=== PATIENT | female | born 1955 | race Caucasian/White ===

== ENCOUNTER 2022-06-21 14:31 | Emergency (ER) | payer OTHER, MEDICARE, SELFPAY ==
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
[2022-06-21 14:35] VITALS: BP 180/72; PULSE 72; O2SAT 98
[2022-06-21 14:36] VITALS: BP 156/72; PULSE 78; RESP 18; TEMP 36.8; O2SAT 98; BMI 34.3
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
[2022-06-21] MEDS: Acetaminophen 325 MG TABLET 650 MG PO (18:20)
[2022-06-21] MEDS: Cyclobenzaprine HCl 5 MG TABLET PO (18:21)
[2022-06-21 18:32] VITALS: BP 130/56; PULSE 79; RESP 19; TEMP 36.7; O2SAT 100
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
--- NOTE | 2022-06-21 19:26 | PC.NURSE ---
call out to [facility] TRANSFER LINE @[id number]
[2022-06-21 19:44] LABS: MANUAL DIFF FLAG NO
[2022-06-21 19:46] LABS: Basophils Absolute Auto 0.1 X10*3/uL (0.0-0.2); Basophils Percent Auto 0.4 % (0-2); Eosinophils Absolute Auto 0.1 X10*3/uL (0.0-0.4); Eosinophils Percent Auto 1.1 % (0-4); Hematocrit 37.3 % (37.0-47.0); Hemoglobin 12.2 g/dl (12.0-16.0); Imm Gran Abs Auto 0.06 X10*3/uL (0.00-0.03); Imm Gran Pct Auto 0.5 % (0.0-0.4); Lymphocytes Absolute Auto 1.8 X10*3/uL (1.2-4.9); Lymphocytes Percent Auto 14.2 % (20-40); Mean Corpuscular HGB Conc 32.7 g/dl (31.0-35.0); Mean Corpuscular Hemoglobin 27.6 pg (27.0-33.0); Mean Corpuscular Volume 84.4 fL (80.0-98.0); Mean Platelet Volume 9.5 fL (9.4-12.3); Monocytes Absolute Auto 0.7 X10*3/uL (0.1-1.2); Monocytes Percent Auto 5.5 % (2-11); Neutrophils Absolute Auto 10.1 x10*3/uL (2.0-8.3); Neutrophils Percent Auto 78.3 % (45-73); Platelet Count 318 X10*3/uL (160-400); Red Blood Count 4.42 X10*6/uL (4.20-5.50); Red Cell Distribution Width 17.2 % (11.0-16.0); White Blood Count 12.9 X10*3/uL (4.8-10.8)
[2022-06-21 19:51] LABS: INTERNATIONAL NORM RATIO 0.9 (0.9-1.1); Prothrombin Time 10.7 SEC (10.0-13.1)
[2022-06-21 19:54] LABS: Partial Thromboplastin Time 31.5 SEC (26.0-36.4)
[2022-06-21] MEDS: Morphine Sulfate 2 MG/ML CARTRIDGE IVPUSH (19:54)
[2022-06-21] MEDS: ondansetron HCL 4 MG/2 ML VIAL IVPUSH (19:55)
[2022-06-21 20:06] LABS: Alanine Aminotransferase 14 U/L (0-31); Albumin Level 4.4 g/dL (3.5-5.0); Alkaline Phosphatase 141 U/L (39-117); Anion Gap 17 (12-20); Aspartate Amino Transferase 12 U/L (5-31); Bilirubin Direct < 0.2 mg/dL (0.0-0.5); Bilirubin Total 0.4 mg/dL (0.0-1.0); Blood Urea Nitrogen 18 mg/dL (9-16); Calcium 9.4 mg/dL (8.4-10.2); Carbon Dioxide 13 mmol/L (22-29); Chloride 112 mmol/L (96-108); Creatinine Clr Calc Pharmacy 51.6; Estimated Glomerular Filt Rate 46; Glucose Random 290 mg/dL (60-115); Lipase 40 U/L (8-78); Magnesium 2.3 mg/dL (1.6-2.6); Sodium 139 mmol/L (135-145); Total Protein 7.8 g/dL (6.5-8.0)
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
[2022-06-21 20:09] VITALS: BP 153/54; PULSE 93; RESP 20
[2022-06-21 20:12] LABS: Troponin-I High Sensitivity 7.1 ng/L (<3.5-17.0)
[2022-06-21 20:23] LABS: Influenza A PCR NEGATIVE (Negative); Influenza B PCR NEGATIVE (Negative); Resp Syncy Virus RNA Qual PCR NEGATIVE (Negative); SARS COV2 PCR INHOUSE NEGATIVE (Negative)
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
[2022-06-21 21:44] VITALS: BP 129/58; PULSE 87; RESP 18; O2SAT 100
[2022-06-21] MEDS: Morphine Sulfate 4 MG/ML CARTRIDGE IVPUSH (22:36)
== END 2022-06-21 22:51 | disposition short-term general hospital (02) ==
PROVIDERS: Nurse Practitioner Family; Emergency Provider Emergency Medicine; PCP Physician Assistant Medical
DX: S22.21XA Fracture of manubrium, initial encounter for closed fracture (principal); S22.43XA Multiple fractures of ribs, bilateral, initial encounter for closed fracture; V43.62XA Car passenger injured in collision with other type car in traffic accident, initial encounter; M25.462 Effusion, left knee; Y93.89 Activity, other specified; Y92.414 Local residential or business street as the place of occurrence of the external cause; Y99.9 Unspecified external cause status; Z20.822 Contact with and (suspected) exposure to COVID-19
CPT/HCPCS: 0241U; 70450; 71250; 72125; 73564; 80048; 80076; 83690; 83735; 84484; 85025; 85610; 85730; 93005; 96374; 96375; 96376; 99285; J2270; J2405

== ENCOUNTER 2023-08-07 10:30 | Inpatient (IN) | payer MEDICARE, OTHER, SELFPAY ==
[2023-08-07 10:39] VITALS: BP 148/80; PULSE 110; O2SAT 97
--- NOTE | 2023-08-07 10:43 | ED.GENADULT ---
HPI - General Adult General Chief complaint: Skin/Abscess/Foreign Body Stated complaint: FEVER 101,NAUSEA,VOMITING SINCE T-1 PER EMS Time Seen by Provider: 08/07/23 10:35 Source: patient and family Mode of arrival: ambulatory Limitations: no limitations History of Present Illness HPI narrative: This is a 68-year-old female presenting with fatigue, malaise, bad rash under left breast and left groin, nausea, vomiting, fevers at home for the past 4 days worsening. Patient reports rash is very bad very painful and has been worsening rapidly. Tells me she feels exhausted and not her self. recently finished a course of Keflex for her hand for cellulitis and it did not seem to help this rash neither did nystatin powder. Denies chest pain, shortness of breath, abdominal pain, headache, vision changes, dizziness and weakness. Related Data Allergies Allergy/AdvReac Type Severity Reaction Status Date / Time amoxicillin AdvReac Headache Verified 08/07/23 11:11 Review of Systems Review of Systems: Constitutional : No Weight loss, + Fever, + Chills, No Fatigue, No Malaise ENT/Mouth : No sore throat, No Rhinorrhea Eyes: No Eye Pain, No Swelling, No Redness Cardiovascular : No Chest Pain, No SOB, No Dyspnea on Exertion, No Orthopnea, No Edema, No Palpitations Respiratory : No Cough, No Sputum, No Wheezing Gastrointestinal : + Nausea, + Vomiting, No Diarrhea, No Constipation, No abdominal Pain, No Hematochezia, No Melena Genitourinary : No Dysuria, No Urinary Frequency, No Hematuria, Musculoskeletal : No joint pain, No Myalgias, No Joint Swelling Skin : No Skin Lesions, No rash Neuro : No Weakness, No Numbness, No Dizziness, No Headache Psych : No Anxiety/Panic, No Depression All other systems reviewed and are negative Yes all other systems are reviewed and are negative [facility] Past Medical History Attestation statement: The following information was validated with the patient. Source: old records reviewed and nursing notes reviewed Social History Social History Smoked in Last 30 Days: No Use of substances other than those prescribed or required for medical reasons: No Advance Directives: No Advance Directives Information Provided: Yes Physical Exam ED Vital Signs: Vital Signs - 24 hr 08/07/23 11:11 Temperature 99 F Pulse Rate 101 H Respiratory Rate 16 Blood Pressure 115/57 L Pulse Oximetry 99 Oxygen Delivery Method Room Air BMI result Body Mass Index 34.3 vss Appearance: Alert.? Oriented X3.? No acute distress.?Patients skin appears flushed. Head: Normocephalic, atraumatic, no step-offs or deformities Eyes: Pupils equal, round and reactive to light.? Neck: Normal inspection.? Neck supple.? CVS: Normal heart rate and rhythm.? Pulses normal.? Respiratory: No respiratory distress.? Breath sounds normal.? Abdomen: Soft and nontender.? Skin: Skin warm and dry.? Normal skin color.? Normal skin turgor.?+ Intertrigo noted to left breast and left groin region with overlying errythema and warmth, very tender to palpation. White curd like discharge overlying. ( refer to images) Extremities: No lower extremity edema.? No calf ttp. 5/5 strength to bilateral upper and lower extremities Neuro: Oriented X 3.? No motor deficit.? No sensory deficit. CN 2-12 intact Course Reevaluation(s) Reevaluation #1: CBC no leukocytosis, a neutrophil predominance patient recently finished antibiotics. Chemistry no acute findings requiring intervention. Time: 11:32 Reevaluation #2: flu/ COVID/ RSV negative. Plan at this time will initiate Zosyn. Patient will require hospital admission due to size of rash, purulence, systemic symptoms. Time: 12:05 Medications Administered Generic Name Dose Route Start Last Admin Trade Name Freq PRN Reason Stop Dose Admin Sodium Chloride 1,000 mls @ 999 mls/hr 08/07/23 11:45 08/07/23 11:57 Ns IV 08/07/23 12:45 999 mls/hr .Q1H1M SHONDA Administration Discontinued Medications Generic Name Dose Route Start Last Admin Trade Name Freq PRN Reason Stop Dose Admin Fluconazole 150 mg 08/07/23 11:31 08/07/23 11:58 Fluconazole 150 Mg Tablet PO 08/07/23 11:32 150 mg ONCE ONE Administration Piperacillin Sod/Tazobactam 50 mls @ 100 mls/hr 08/07/23 11:31 08/07/23 11:58 Sod 3.375 gm/ Sodium Chloride IV 08/07/23 12:00 100 mls/hr ONCE ONE Administration Morphine Sulfate 4 mg 08/07/23 11:31 08/07/23 11:58 Morphine Sulfate 4 Mg/Ml Cartridge IVPUSH 08/07/23 11:32 4 mg ONCE ONE Administration Protocol Medical Decision Making Medical Decision Making [facility] Narrative: 1044 60-year-old female presents with nausea, vomiting, fevers, chills and rash under breast and groin. PE Intertrigo noted to left breast and left groin region with overlying errythema and warmth, very tender to palpation. White curd like discharge overlying. ( refer to images) Patient last applied nystatin two days ago and wiped off after.( refer to image of breast) Likely into tree go with superimposed cellulitis. viral illness such as flu/covid/rsv. No signs of acute abdomen, obstruction, diverticulitits, appendiciits, cholecysitits, pancreatitis. . Unlikely necrotizing infection, SJS, ACS, acute allergic reaction. Will rule out metabolic derangments Plan- labs, viral test, UA Differential Diagnosis Differential Diagnoses: The differential diagnosis associated with the presentation includes Likely into tree go with superimposed cellulitis. viral illness such as flu/covid/rsv. No signs of acute abdomen, obstruction, diverticulitits, appendiciits, cholecysitits, pancreatitis. . Unlikely necrotizing infection, SJS, ACS, acute allergic reaction. Will rule out metabolic derangments Admission/Observation Consideration of admission/observation: Escalation of care including admission/observation considered Lab Data [facility] Lab Attestation statement: I reviewed the patient's lab results. 08/07/23 10:53 08/07/23 10:53 Labs: Lab Results 08/07/23 08/07/23 Range/Units 10:53 11:42 WBC 10.2 (4.8-10.8) X10*3/uL RBC 4.33 (4.20-5.50) X10*6/uL Hgb 12.3 (12.0-16.0) g/dl Hct 38.6 (37.0-47.0) % MCV 89.1 (80.0-98.0) fL MCH 28.4 (27.0-33.0) pg MCHC 31.9 (31.0-35.0) g/dl RDW 13.6 (11.0-16.0) % Plt Count 217 D (160-400) X10*3/uL MPV 9.4 (9.4-12.3) fL Immature Gran % (Auto) 0.4 (0.0-0.4) % Neut % (Auto) 89.2 H (45-73) % Lymph % (Auto) 3.2 L (20-40) % [place] % (Auto) 6.0 (2-11) % Eos % (Auto) 1.0 (0-4) % Baso % (Auto) 0.2 (0-2) % Lymph # (Auto) 0.3 L (1.2-4.9) X10*3/uL [place] # (Auto) 0.6 (0.1-1.2) X10*3/uL Eos # (Auto) 0.1 (0.0-0.4) X10*3/uL Baso # (Auto) 0.0 (0.0-0.2) X10*3/uL Abs Immat Gran (auto) 0.04 H (0.00-0.03) X10*3/uL Absolute Neuts (auto) 9.1 H (2.0-8.3) x10*3/uL Absolute Nucleated RBC 0.000 (0.0-0.012) X10*3/uL Nucleated RBC % (auto) 0.0 (0.0-0.2) /100WBC Sodium 137 (135-145) mmol/L Potassium 4.1 D (3.3-5.1) mmol/L Chloride 104 (96-108) mmol/L Carbon Dioxide 17 L (22-29) mmol/L Anion Gap 20 (12-20) BUN 15 (9-16) mg/dL Creatinine 1.01 (0.5-1.4) mg/dL Estim Creat Clear Calc TNP Estimated GFR 55 Random Glucose 223 H (60-115) mg/dL Calcium 9.3 (8.4-10.2) mg/dL Magnesium 2.0 (1.6-2.6) mg/dL Total Bilirubin 0.7 (0.0-1.0) mg/dL AST 15 (5-31) U/L ALT 16 (0-31) U/L Alkaline Phosphatase 104 (39-117) U/L Total Protein 7.3 (6.5-8.0) g/dL Albumin 3.9 (3.5-5.0) g/dL Lipase 13 (8-78) U/L Urine Color Yellow Urine Appearance Cloudy Urine pH 6.0 (5.0-9.0) Ur Specific [place] >= 1.030 H (1.005-1.025) Urine Protein Trace (Neg-Trace) mg/dL Urine Glucose (UA) >=1000 H (Negative) mg/dL Urine Ketones >=160 (Negative) mg/dL Urine Blood Negative (Negative) Urine Nitrite Negative (Negative) Ur Leukocyte Esterase Moderate (2+) H (Negative) Influenza Type A (PCR) NEGATIVE (Negative) Influenza Type B (PCR) NEGATIVE (Negative) RSV RNA Qual (PCR) NEGATIVE (Negative) SARS-CoV-2 RNA (RT-PCR) NEGATIVE (Negative) Critical Care Time Critical Care Time Critical Care Time: Yes Total Critical Care Time: 35 Attestation: I attest to this time spent taking care of the patient, obtaining history, physical, reviewing labs, imaging, speaking to Hospitalist Discharge Plan Discharge Clinical Impression: Cellulitis, Intertrigo Patient Disposition: Admitted As Inpatient
[2023-08-07 10:59] LABS: MANUAL DIFF FLAG NO
[2023-08-07 11:00] LABS: Basophils Percent Auto 0.2 % (0-2); Eosinophils Absolute Auto 0.1 X10*3/uL (0.0-0.4); Hematocrit 38.6 % (37.0-47.0); Hemoglobin 12.3 g/dl (12.0-16.0); Imm Gran Abs Auto 0.04 X10*3/uL (0.00-0.03); Imm Gran Pct Auto 0.4 % (0.0-0.4); Lymphocytes Absolute Auto 0.3 X10*3/uL (1.2-4.9); Lymphocytes Percent Auto 3.2 % (20-40); Mean Corpuscular HGB Conc 31.9 g/dl (31.0-35.0); Mean Corpuscular Hemoglobin 28.4 pg (27.0-33.0); Mean Corpuscular Volume 89.1 fL (80.0-98.0); Mean Platelet Volume 9.4 fL (9.4-12.3); Monocytes Absolute Auto 0.6 X10*3/uL (0.1-1.2); Neutrophils Absolute Auto 9.1 x10*3/uL (2.0-8.3); Neutrophils Percent Auto 89.2 % (45-73); Platelet Count 217 X10*3/uL (160-400); Red Blood Count 4.33 X10*6/uL (4.20-5.50); Red Cell Distribution Width 13.6 % (11.0-16.0); White Blood Count 10.2 X10*3/uL (4.8-10.8)
[2023-08-07 11:11] VITALS: BP 115/57; PULSE 101; RESP 16; TEMP 37.2; O2SAT 99; BMI 34.3
[2023-08-07 11:14] LABS: Alanine Aminotransferase 16 U/L (0-31); Albumin Level 3.9 g/dL (3.5-5.0); Alkaline Phosphatase 104 U/L (39-117); Anion Gap 20 (12-20); Aspartate Amino Transferase 15 U/L (5-31); Bilirubin Total 0.7 mg/dL (0.0-1.0); Blood Urea Nitrogen 15 mg/dL (9-16); Calcium 9.3 mg/dL (8.4-10.2); Carbon Dioxide 17 mmol/L (22-29); Chloride 104 mmol/L (96-108); Estimated Glomerular Filt Rate 55; Glucose Random 223 mg/dL (60-115); Lipase 13 U/L (8-78); Potassium 4.1 mmol/L (3.3-5.1); Sodium 137 mmol/L (135-145); Total Protein 7.3 g/dL (6.5-8.0)
[2023-08-07 11:39] LABS: Influenza A PCR NEGATIVE (Negative); Influenza B PCR NEGATIVE (Negative); Resp Syncy Virus RNA Qual PCR NEGATIVE (Negative); SARS COV2 PCR INHOUSE NEGATIVE (Negative)
[2023-08-07] MEDS: 0.9 % Sodium Chloride 1,000 ML 999 ML IV (11:57)
[2023-08-07] MEDS: Piperacillin Sodium/Tazobactam 3.375 GM in 0.9 % Sodium Chloride 50 ML IV (11:58)
[2023-08-07] MEDS: Fluconazole 150 MG TABLET PO (11:58)
[2023-08-07] MEDS: Morphine Sulfate 4 MG/ML CARTRIDGE IVPUSH (11:58)
[2023-08-07 12:01] LABS: Appearance Urine Cloudy; Color Urine Yellow; Glucose Urine UA >=1000 mg/dL (Negative); Leukocyte Esterase Urine Moderate (2+) (Negative); Nitrite Urine Negative (Negative); Specific Gravity - Urine >= 1.030 (1.005-1.025); UMIC TRIGGER UACC YES; Urine Blood Negative (Negative); Urine Ketones >=160 mg/dL (Negative); Urine Protein Trace mg/dL (Neg-Trace)
[2023-08-07 12:08] LABS: Lactic Acid 1.9 mmol/L (0.5-2.0)
[2023-08-07 12:11] LABS: C Reactive Protein 15.28 mg/dL (< or = 0.50)
--- NOTE | 2023-08-07 12:20 | P.HPHOSP_ITS ---
History of Present Illness Date of Service: 08/07/23 Chief Complaint: Skin infection 68 yo F w pmhx of Ischemic CMP s/p stent w full recovery in EF to 55-60%, Poorly controlled diabetes, HTN, HLP, history of PE treated with Apixiban. She is here with skin excoriation underwent breasts and groin area, initially started as fungal rash and she was using over the counter Nystatin but infact has gotten worse, despite the fact that she has also been taking Keflex for a finger infection. She has no fever or chills, She states her sugars are generally ok with Fasting sugars around 160s Review of Systems 2 Review of Systems: Rash under breasts, groin No fever or chills, all other sytems reviewed and are negative [facility] Medical History (Updated 08/07/23 @ 18:38 by Camila Fitzpatrick RN) SWETA (acute kidney injury) HTN (hypertension) Surgical History (Updated 08/07/23 @ 18:38 by Camila Fitzpatrick RN) History of left knee replacement Hx of heart artery stent Social History Household Members: Spouse Housing: House Do you presently have visiting nurse or other home services: Yes Patient Tobacco Use Status: Never used Tobacco Smoked in Last 30 Days: No Use of substances other than those prescribed or required for medical reasons: No Currently Displaying Signs/Symptoms of Drug Intoxication Withdrawal: No Have you been hit, kicked, punched, or otherwise hurt by someone within the past year? If so, by whom?: No Do you feel safe in your current relationship?: Yes Is there a partner from a previous relationship who is making you feel unsafe now?: No Are you made to feel afraid or neglected: No Hoahaoism Healthcare Practices: judaism Advance Directives: No Advance Directives Information Provided: Yes Do you have thoughts of harming others: None Do you have a plan to hurt others: No Plan Recently lost weight without trying: No Nutrition Risks: No Nutritional Risk Patient : No : No Poor oral hygiene: No service: No Meds Allergies Allergy/AdvReac Type Severity Reaction Status Date / Time amoxicillin AdvReac Headache Verified 08/07/23 11:11 Active Medications: Current Medications Sodium Chloride (Ns) 1,000 mls @ 999 mls/hr IV .Q1H1M SHONDA Stop: 08/07/23 12:45 Last Admin: 08/07/23 11:57 Dose: 999 mls/hr Home Medications Medication Instructions Recorded Confirmed Last Taken Type alendronate 70 mg tablet 70 mg PO WE 08/07/23 08/07/23 Unknown History aspirin 81 mg tablet,delayed 81 mg PO DAILY 08/07/23 08/07/23 Unknown History release atorvastatin 80 mg tablet 80 mg PO DAILY 08/07/23 08/07/23 Unknown History empagliflozin 10 mg tablet 10 mg PO DAILY 08/07/23 08/07/23 Unknown History (Jardiance) fluconazole 150 mg tablet 150 mg PO ONCE PRN infection 08/07/23 08/07/23 08/05/23 History glyburide 5 mg tablet 10 mg PO BID 08/07/23 08/07/23 Unknown History insulin aspart U-100 100 unit/mL 13 unit subcut TIDWM 08/07/23 08/07/23 Unknown History (3 mL) subcutaneous pen (Novolog FlexPen U-100 Insulin aspart) insulin glargine 100 unit/mL (3 32 unit subcut QPM 08/07/23 08/07/23 Unknown History mL) subcutaneous pen (Basaglar KwikPen U-100 Insulin) ketoconazole 2 % topical cream 1 appl topical BID PRN Rash 08/07/23 08/07/23 Unknown History lisinopril 5 mg tablet 5 mg PO DAILY 08/07/23 08/07/23 Unknown History metformin 500 mg tablet,extended 1,000 mg PO BID 08/07/23 08/07/23 Unknown History release 24 hr metoprolol tartrate 25 mg tablet 25 mg PO BID 08/07/23 08/07/23 Unknown History nystatin 100,000 unit/gram topical 1 appl topical QID PRN Rash 08/07/23 08/07/23 Unknown History powder (Nyamyc) oxycodone-acetaminophen 5 mg-325 1 tab PO Q8H PRN pain 08/07/23 08/07/23 Unknown History mg tablet ticagrelor 60 mg tablet (Brilinta) 60 mg PO BID 08/07/23 08/07/23 Unknown History Physical Exam 2 Vital Signs and Narrative: Vital Signs: Last Vital Signs Temp 99 F 08/07/23 11:11 Pulse 101 H 08/07/23 11:11 Resp 16 08/07/23 11:11 BP 115/57 L 08/07/23 11:11 Pulse Ox 99 08/07/23 11:11 O2 Del Method Room Air 08/07/23 11:11 BMI result Body Mass Index 34.3 Const: Other: General: AO X 3, no acute distress Resp: CTA bilateral CVS: S1,S2,RRR GI: +BS, NT, no distention Skin: Neuro: motor grossly intact Psych: appropriate affect Results Labs 08/07/23 10:53 08/07/23 10:53 Labs: Laboratory Results - last 24 hr 08/07/23 08/07/23 08/07/23 10:53 11:42 11:51 MCV 89.1 MCH 28.4 MCHC 31.9 RDW 13.6 Plt Count 217 D MPV 9.4 Immature Gran % (Auto) 0.4 Neut % (Auto) 89.2 H Lymph % (Auto) 3.2 L [place] % (Auto) 6.0 Eos % (Auto) 1.0 Baso % (Auto) 0.2 Lymph # (Auto) 0.3 L [place] # (Auto) 0.6 Eos # (Auto) 0.1 Baso # (Auto) 0.0 Abs Immat Gran (auto) 0.04 H Absolute Neuts (auto) 9.1 H Absolute Nucleated RBC 0.000 Nucleated RBC % (auto) 0.0 Anion Gap 20 Estim Creat Clear Calc TNP Estimated GFR 55 Random Glucose 223 H Lactic Acid Calcium 9.3 Magnesium 2.0 Total Bilirubin 0.7 AST 15 ALT 16 Alkaline Phosphatase 104 C-Reactive Protein 15.28 H Total Protein 7.3 Albumin 3.9 Lipase 13 Urine Color Yellow Urine Appearance Cloudy Urine pH 6.0 Ur Specific [place] >= 1.030 H Urine Protein Trace Urine Glucose (UA) >=1000 H Urine Ketones >=160 Urine Blood Negative Urine Nitrite Negative Ur Leukocyte Esterase Moderate (2+) H Influenza Type A (PCR) NEGATIVE Influenza Type B (PCR) NEGATIVE RSV RNA Qual (PCR) NEGATIVE SARS-CoV-2 RNA (RT-PCR) NEGATIVE 08/07/23 11:52 MCV MCH MCHC RDW Plt Count MPV Immature Gran % (Auto) Neut % (Auto) Lymph % (Auto) [place] % (Auto) Eos % (Auto) Baso % (Auto) Lymph # (Auto) [place] # (Auto) Eos # (Auto) Baso # (Auto) Abs Immat Gran (auto) Absolute Neuts (auto) Absolute Nucleated RBC Nucleated RBC % (auto) Anion Gap Estim Creat Clear Calc Estimated GFR Random Glucose Lactic Acid 1.9 Calcium Magnesium Total Bilirubin AST ALT Alkaline Phosphatase C-Reactive Protein Total Protein Albumin Lipase Urine Color Urine Appearance Urine pH Ur Specific [place] Urine Protein Urine Glucose (UA) Urine Ketones Urine Blood Urine Nitrite Ur Leukocyte Esterase Influenza Type A (PCR) Influenza Type B (PCR) RSV RNA Qual (PCR) SARS-CoV-2 RNA (RT-PCR) Assessment and Plan (1) Intertrigo: Status: Acute (2) Cellulitis: Status: Acute Plan 68 yo F w pmhx of Ischemic CMP s/p stent w full recovery in EF to 55-60%, Poorly controlled diabetes, HTN, HLP, history of PE treated with Apixiban, poorly controlled diabetes here with intertriginous candidiasis with superimposed bacterial infection under breasts and inguinal folds 1/ intertriginous candidiasis/Cellulitis under breast -Nystatin Powder -Vancomycin empirically -Wound care consult -diabetes control 2/ Diabetes, A1C of 10 -continue Lantus, add SSI, hold glyburide and scheduled pre meal insulin 3/HLD--continue Lipitor 4/ HTN--continue Lisinopril continue Lisinpril and metoprolol 4/ h/o CAD--continue Brilanta, metoprolol, ASA and Lipitor DVT prophylaxis: lovenox full code Admission for at least 2 midngith for IV Abx for extensive candiasis with superimpose cellulitis involving large surface with high risk of full blown sepsis Quality Stroke Does the patient have a stroke diagnosis?: No VTE Prior VTE?: No VTE Risk Level:: Medical - moderate - high VTE Device Contraindication: Treatment Not Indicated VTE Drug Contraindication: N/A - Med Ordered
[2023-08-07 12:28] LABS: Bacteria Urine 1+ (None Seen); Hyaline Casts Urine 0-2 /LPF (0-2); UACC Culture Trigger YES; WBC Urine >50 /HPF (0-5)
[2023-08-07 12:37] LABS: Erythrocyte Sedimentation Rate 54 MM/HR (0-20)
--- NOTE | 2023-08-07 13:07 | PHA.MEDREC ---
Pharmacy Consult ? Medication Reconciliation Pharmacy has completed the medication reconciliation. spoke with patient to confirm medications. She reports not taking any medications today. She was taking cephalexin 500mg BID x10 days but was only able to complete 8 days due to intolerable side effects. She reports taking the oxycodone/acetaminophen only if she has too for back pain. She reports taking a fluconazole on Saturday.
[2023-08-07 13:28] LABS: Estimated Average Glucose 260 mg/dL; Hemoglobin A1c % 10.7 % (<6.0)
[2023-08-07 14:11] VITALS: BP 96/49; PULSE 97; RESP 16; TEMP 37.2; O2SAT 98
[2023-08-07 16:00] VITALS: BP 129/61; PULSE 100; RESP 18; TEMP 37.3; O2SAT 97
[2023-08-07 16:50] LABS: Glucose, Whole Blood 175 mg/dL (60-115)
[2023-08-07] MEDS: 0.9 % Sodium Chloride Flush 3 ML SYRINGE IVFLUSH (18:03)
[2023-08-07] MEDS: ondansetron HCL 4 MG/2 ML VIAL IVPUSH (18:27)
[2023-08-07 20:00] LABS: Glucose, Whole Blood 179 mg/dL (60-115)
[2023-08-07] MEDS: oxyCODONE HCl Immed Release 5 MG TABLET PO (20:20)
[2023-08-07] MEDS: Insulin Lispro 100 UNIT/ML 3 ML VIAL SUBCUT (20:22)
[2023-08-07] MEDS: Metoprolol Tartrate 25 MG TABLET PO (20:22)
[2023-08-07] MEDS: Insulin Glargine,Hum.rec.anlog 100 UNIT/ML 10 ML VIAL 25 UNIT SUBCUT (20:23)
[2023-08-07] MEDS: vancomycin/NS 2,000 MG/500 ML PLAST..BAG 250 MG IV (20:25)
[2023-08-07] MEDS: Nystatin Powder 15 GM BOTTLE 1 APPL TOPICAL (22:53)
--- NOTE | 2023-08-07 23:03 | PC.NURSE ---
cleansed rash areas,nystatin powder applied,also interdry applied under breast and under abdominal folds
[2023-08-07 23:23] VITALS: BP 113/52; PULSE 91; RESP 16; TEMP 36.6; O2SAT 97
[2023-08-08] MEDS: 0.9 % Sodium Chloride Flush 3 ML SYRINGE IVFLUSH ×3 (00:39→15:53)
[2023-08-08 06:44] VITALS: BP 157/63; PULSE 84; RESP 16; TEMP 36.6; O2SAT 99
[2023-08-08 07:47] LABS: Glucose, Whole Blood 191 mg/dL (60-115)
[2023-08-08] MEDS: Insulin Lispro 100 UNIT/ML 3 ML VIAL SUBCUT ×4 (08:19→20:53)
[2023-08-08] MEDS: vancomycin HCL 750 MG in 0.9 % Sodium Chloride 250 ML 265 MG IV ×2 (08:20→20:56)
[2023-08-08] MEDS: Aspirin Enteric Coated 81 MG TABLET.DR PO (08:21)
[2023-08-08] MEDS: Empagliflozin 10 MG TABLET PO (08:21)
[2023-08-08] MEDS: Atorvastatin Calcium 80 MG TABLET PO (08:22)
[2023-08-08] MEDS: Clotrimazole 1 % Cream 15 GM TUBE 1 APPL TOPICAL (08:22)
[2023-08-08] MEDS: Metoprolol Tartrate 25 MG TABLET PO (08:22)
[2023-08-08] MEDS: metFORMIN HCl ER 500 MG TAB.ER.24H 1000 MG PO ×2 (08:22→20:55)
[2023-08-08] MEDS: lisinopriL 5 MG TABLET PO (08:22)
[2023-08-08] MEDS: Nystatin Powder 15 GM BOTTLE 1 APPL TOPICAL ×4 (08:30→21:22)
--- NOTE | 2023-08-08 09:33 | MHC.CM.PN ---
IMM DELIVERED PATIENT FROM HOME W/ . AMBULATES INDEPENDENTLY IN HOME, BUT USES A WALKER IN THE COMMUNITY. INDEPENDENT W/ ADL'S. NO SERVICES. PCP: ARSH SHI W/ [facility] HCP: CM ASSISTED PT IN COMPLETING, PT NAMED AGENTS 1) JOSE, 2) COUSIN KETTY [phone] DP: GOAL IS HOME, SELF CARE, TO TRANSPORT. CM WILL CONTINUE TO FOLLOW FOR D/C NEEDS.
--- NOTE | 2023-08-08 09:39 | HO.PM.IMPN ---
Subjective Subjective Date of Service: 08/09/23 Review of Systems Rash under breasts, groin No fever or chills, all other sytems reviewed and are negative Physical Exam Vital Signs: Vital Signs: Last Vital Signs Temp 98 F 08/08/23 06:44 Pulse 84 08/08/23 06:44 Resp 16 08/08/23 06:44 BP 157/63 H 08/08/23 06:44 Pulse Ox 99 08/08/23 06:44 O2 Del Method Room Air 08/08/23 06:44 BMI result Body Mass Index 34.3 Const: Other: General: AO X 3, no acute distress Resp: CTA bilateral CVS: S1,S2,RRR GI: +BS, NT, no distention Skin: Neuro: motor grossly intact Psych: appropriate affect Objective Data Active Medications Acetaminophen (Acetaminophen 325 Mg Tablet) 650 mg PO Q6H PRN PRN Reason: Pain, Mild (Pain Scale 1-3) Aspirin (Aspirin Enteric Coated 81 Mg Tablet.) 81 mg PO DAILY [facility] Last Admin: 08/08/23 08:21 Dose: 81 mg Documented By: MARVIN Atorvastatin Calcium (Atorvastatin Calcium 80 Mg Tablet) 80 mg PO DAILY [facility] Last Admin: 08/08/23 08:22 Dose: 80 mg Documented By: MARVIN Dextrose (Dextrose 50 % 25 Gm/50 Ml Syringe) 25 gm IVPUSH Q15M PRN; Protocol PRN Reason: per Hypoglycemia Standing Ord. Empagliflozin (Empagliflozin 10 Mg Tablet) 10 mg PO DAILY [facility] Last Admin: 08/08/23 08:21 Dose: 10 mg Documented By: MARVIN Enoxaparin Sodium (Enoxaparin Sodium 40 Mg/0.4 Ml Syringe) 40 mg SUBCUT Q24H [facility] Glucose (Glucose Gel 15 Gm Gel..Gram.) 15 gm PO Q15M PRN; Protocol PRN Reason: per Hypoglycemia Standing Ord. Vancomycin HCl 750 mg/ Sodium (Chloride) 265 mls @ 265 mls/hr IV Q12H [facility] Last Admin: 08/08/23 08:20 Dose: 265 mls/hr Documented By: MARVIN Insulin Glargine (Insulin Glargine,Hum.Rec.Anlog 100 Unit/Ml 10 Ml Vial) 25 unit SUBCUT BEDTIME [facility] Last Admin: 08/07/23 20:23 Dose: 25 unit Documented By: ANANDA Insulin Human Lispro (Insulin Lispro 100 Unit/Ml 3 Ml Vial) 0 unit SUBCUT QIDACHS [facility]; Protocol Last Admin: 08/08/23 08:19 Dose: 2 unit Documented By: MARVIN Lisinopril (Lisinopril 5 Mg Tablet) 5 mg PO DAILY [facility]; Protocol Last Admin: 08/08/23 08:22 Dose: 5 mg Documented By: MARVIN Magnesium Hydroxide (Milk Of Magnesia 30 Ml Oral.Susp) 30 ml PO DAILY PRN PRN Reason: Constipation Metformin HCl (Metformin Hcl Er 500 Mg Tab.Er.24h) 1,000 mg PO BID [facility] Last Admin: 08/08/23 08:22 Dose: 1,000 mg Documented By: MARVIN Metoprolol Tartrate (Metoprolol Tartrate 25 Mg Tablet) 25 mg PO BID [facility]; Protocol Last Admin: 08/08/23 08:22 Dose: 25 mg Documented By: MARVIN Morphine Sulfate (Morphine Sulfate 2 Mg/Ml Cartridge) 2 mg IVPUSH Q6H PRN; Protocol PRN Reason: Pain, Severe (Pain Scale 7-10) Pt Own (Ticagrelor [ Brilinta] 60 Mg Tablet) 60 mg PO BID [facility] Last Admin: 08/08/23 08:22 Dose: 60 mg Documented By: MARVIN Nystatin (Nystatin Powder 15 Gm Bottle) 1 appl TOPICAL QID [facility]; Protocol Last Admin: 08/08/23 08:58 Dose: Not Given Documented By: MARVIN Non-Admin Reason: Previously Administered Ondansetron HCl (Ondansetron Hcl 4 Mg/2 Ml Vial) 4 mg IVPUSH Q8H PRN PRN Reason: Nausea and Vomiting Last Admin: 08/07/23 18:27 Dose: 4 mg Documented By: ANANDA Oxycodone HCl (Oxycodone Hcl Immed Release 5 Mg Tablet) 5 mg PO Q6H PRN PRN Reason: Pain, Severe (Pain Scale 7-10) Last Admin: 08/07/23 20:20 Dose: 5 mg Documented By: ANANDA Pharmacy Consult (Consult Rx Vancomycin Dosing) 1 each MISCELLANE DAILY PRN PRN Reason: Consult order Sodium Chloride (0.9 % Sodium Chloride Flush 3 Ml Syringe) 3 ml IVFLUSH QSHIFT [facility] Last Admin: 08/08/23 08:21 Dose: 3 ml Documented By: MARVIN Labs 08/07/23 10:53 08/09/23 05:30 Labs: Laboratory Results - last 24 hr 08/07/23 08/07/23 08/07/23 10:53 11:42 11:51 MCV 89.1 MCH 28.4 MCHC 31.9 RDW 13.6 Plt Count 217 D MPV 9.4 Immature Gran % (Auto) 0.4 Neut % (Auto) 89.2 H Lymph % (Auto) 3.2 L [place] % (Auto) 6.0 Eos % (Auto) 1.0 Baso % (Auto) 0.2 Lymph # (Auto) 0.3 L [place] # (Auto) 0.6 Eos # (Auto) 0.1 Baso # (Auto) 0.0 Abs Immat Gran (auto) 0.04 H Absolute Neuts (auto) 9.1 H Absolute Nucleated RBC 0.000 Nucleated RBC % (auto) 0.0 ESR 54 H Anion Gap 20 Estim Creat Clear Calc TNP Estimated GFR 55 POC Glucose Random Glucose 223 H Estimat Average Glucose 260 Hemoglobin A1c % 10.7 H Lactic Acid Calcium 9.3 Magnesium 2.0 Total Bilirubin 0.7 AST 15 ALT 16 Alkaline Phosphatase 104 C-Reactive Protein 15.28 H Total Protein 7.3 Albumin 3.9 Lipase 13 Urine Color Yellow Urine Appearance Cloudy Urine pH 6.0 Ur Specific [place] >= 1.030 H Urine Protein Trace Urine Glucose (UA) >=1000 H Urine Ketones >=160 Urine Blood Negative Urine Nitrite Negative Ur Leukocyte Esterase Moderate (2+) H Urine RBC 3-5 H Urine WBC >50 H Ur Squamous Epith Cells 3-5 Urine Bacteria 1+ Hyaline Casts 0-2 Urine Yeast Present Influenza Type A (PCR) NEGATIVE Influenza Type B (PCR) NEGATIVE RSV RNA Qual (PCR) NEGATIVE SARS-CoV-2 RNA (RT-PCR) NEGATIVE 08/07/23 08/07/23 08/07/23 11:52 16:45 19:20 MCV MCH MCHC RDW Plt Count MPV Immature Gran % (Auto) Neut % (Auto) Lymph % (Auto) [place] % (Auto) Eos % (Auto) Baso % (Auto) Lymph # (Auto) [place] # (Auto) Eos # (Auto) Baso # (Auto) Abs Immat Gran (auto) Absolute Neuts (auto) Absolute Nucleated RBC Nucleated RBC % (auto) ESR Anion Gap Estim Creat Clear Calc Estimated GFR POC Glucose 175 H 179 H Random Glucose Estimat Average Glucose Hemoglobin A1c % Lactic Acid 1.9 Calcium Magnesium Total Bilirubin AST ALT Alkaline Phosphatase C-Reactive Protein Total Protein Albumin Lipase Urine Color Urine Appearance Urine pH Ur Specific [place] Urine Protein Urine Glucose (UA) Urine Ketones Urine Blood Urine Nitrite Ur Leukocyte Esterase Urine RBC Urine WBC Ur Squamous Epith Cells Urine Bacteria Hyaline Casts Urine Yeast Influenza Type A (PCR) Influenza Type B (PCR) RSV RNA Qual (PCR) SARS-CoV-2 RNA (RT-PCR) 08/08/23 06:58 MCV MCH MCHC RDW Plt Count MPV Immature Gran % (Auto) Neut % (Auto) Lymph % (Auto) [place] % (Auto) Eos % (Auto) Baso % (Auto) Lymph # (Auto) [place] # (Auto) Eos # (Auto) Baso # (Auto) Abs Immat Gran (auto) Absolute Neuts (auto) Absolute Nucleated RBC Nucleated RBC % (auto) ESR Anion Gap Estim Creat Clear Calc Estimated GFR POC Glucose 191 H Random Glucose Estimat Average Glucose Hemoglobin A1c % Lactic Acid Calcium Magnesium Total Bilirubin AST ALT Alkaline Phosphatase C-Reactive Protein Total Protein Albumin Lipase Urine Color Urine Appearance Urine pH Ur Specific [place] Urine Protein Urine Glucose (UA) Urine Ketones Urine Blood Urine Nitrite Ur Leukocyte Esterase Urine RBC Urine WBC Ur Squamous Epith Cells Urine Bacteria Hyaline Casts Urine Yeast Influenza Type A (PCR) Influenza Type B (PCR) RSV RNA Qual (PCR) SARS-CoV-2 RNA (RT-PCR) Assessment and Plan (1) Intertrigo: Status: Acute (2) Cellulitis: Status: Acute Plan 68 yo F w pmhx of Ischemic CMP s/p stent w full recovery in EF to 55-60%, Poorly controlled diabetes, HTN, HLP, history of PE treated with Apixiban, poorly controlled diabetes here with intertriginous candidiasis with superimposed bacterial infection under breasts and inguinal folds 1/ intertriginous candidiasis/?Cellulitis under breast--appearance most consitent with fungal rash -Nystatin Powder to keep area -Vancomycin empirically, probably change to PO Doxy -Wound care consult -diabetes control 2/ Diabetes, A1C of 10 -continue Lantus, jardiance, metformin add SSI. Hold gl 3/HLD--continue Lipitor 4/ HTN--continue Lisinopril continue Lisinpril and metoprolol 4/ h/o CAD--continue Brilanta, metoprolol, ASA and Lipitor DVT prophylaxis: lovenox full code Admission for at least 2 midngith for IV Abx for extensive candiasis with superimpose cellulitis involving large surface with high risk of full blown sepsis Quality Stroke Does the patient have a stroke diagnosis?: No VTE Prior VTE?: Yes VTE Risk Level:: Medical - moderate - high VTE Device Contraindication: Treatment Not Indicated VTE Drug Contraindication: N/A - Med Ordered
[2023-08-08 10:23] LABS: Creatinine Clr Calc Pharmacy 57.4; Estimated Glomerular Filt Rate 52
[2023-08-08] MEDS: Enoxaparin Sodium 40 MG/0.4 ML SYRINGE SUBCUT (10:44)
[2023-08-08 11:09] LABS: Glucose, Whole Blood 177 mg/dL (60-115)
--- NOTE | 2023-08-08 11:15 | PC.NURSE ---
Pt's final urine cx result reported to Dr. Mckee.
[2023-08-08 15:09] VITALS: PULSE 82; RESP 18; TEMP 36.4
[2023-08-08 15:30] VITALS: BP 91/52; BP 94/50; PULSE 82; PULSE 83
[2023-08-08 15:35] LABS: Glucose, Whole Blood 210 mg/dL (60-115)
--- NOTE | 2023-08-08 15:36 | PC.NURSE ---
BP low 91/52 pulse 83,on a left arm 91/52 pulse 83,patient reports feeling weak earlier but feels better now
--- NOTE | 2023-08-08 16:53 | HO.WOUND ---
Wound Consult: Initial 68yr [place] [facility] [place] 13:30- See progress notes and H&P for detailed history. Wound consult placed for Fungal Dermatitis to bilateral breast and groin. Bilateral Groin and Bilateral Breast Folds - Fungal Dermatitis - Red erythema with in skin fold advancing satellite lesions notes advancing outside of skin fold. Left breast has concern for worsening cellulitis - red erythema observed advancing up left breast - as this is my first assessment the provider (Dr. Mckee) was TT a picture and notified of red erythema along with swelling. The areas will benefit from a cream based antifungal given her reported tenderness. When present in intertriginous areas cream can work best for comfort the powder tends to lead to more friction causing more pain. At the time of y assessment eh patient reports little relief with powder and she had been using nystatin at home prior to admission. Antifungal cream such as Miconazole 2% cream can treat the fungal infection in addition have a soothing effect to the topical irritation. Miconazole can be very effective at treating topical stubborn fungal dermatitis when nystatin has proven ineffective. Miconazole 2% cream / ointments can be used in the breast and perineal areas. Recommendations: 1. Maintain blood glucose levels per Providers orders. - Patient was educated poor diabetic control can lead to frequent fungal invasions and she will benefit from better control of her diabetes. 2. Bilateral Breast and Groin - Gently cleanse with Ph wipe, allow to dry - keep skin fold open to air to allow for tissue to completely dry. Then apply Antifungal cream - Miconazole 2% twice daily. ?Apply for 10-14 days past point of clinical clearing. Once fungal dermatits has cleared consider use of Interdry Sheets to aid in translocating moisture. Re-consult wound care Nurse for wound deterioration or wound changes.
--- NOTE | 2023-08-08 19:07 | HE.PHANOTE ---
VANCO DOSE ADJUSTMENT BASED ON SCR AND TROUGH DOSE CONTINUED AT 750 Q 12H. NEXT LEVEL FOR 08/10 @ 0600
[2023-08-08 19:59] LABS: Glucose, Whole Blood 239 mg/dL (60-115)
[2023-08-08] MEDS: Insulin Glargine,Hum.rec.anlog 100 UNIT/ML 10 ML VIAL 25 UNIT SUBCUT (20:54)
[2023-08-08 20:59] VITALS: BP 92/54; PULSE 78
--- NOTE | 2023-08-08 21:20 | PC.NURSE ---
BP 92/[address] Holbrook made aware will hold Metroprolol tonight
[2023-08-08] MEDS: oxyCODONE HCl Immed Release 5 MG TABLET PO (22:42)
[2023-08-08 23:56] VITALS: BP 89/53; PULSE 75; RESP 16; TEMP 36.8; O2SAT 98
[2023-08-09] MEDS: 0.9 % Sodium Chloride Flush 3 ML SYRINGE IVFLUSH ×4 (00:20→22:42)
[2023-08-09 00:36] VITALS: BP 104/50
[2023-08-09 07:13] VITALS: BP 103/58; PULSE 74; RESP 18; TEMP 36.4; O2SAT 100
[2023-08-09 07:29] LABS: Creatinine Clr Calc Pharmacy 74.2; Estimated Glomerular Filt Rate > 60
[2023-08-09 07:35] LABS: Glucose, Whole Blood 157 mg/dL (60-115)
[2023-08-09] MEDS: Insulin Lispro 100 UNIT/ML 3 ML VIAL SUBCUT ×4 (08:09→20:57)
[2023-08-09] MEDS: metFORMIN HCl ER 500 MG TAB.ER.24H 1000 MG PO ×2 (08:10→20:57)
[2023-08-09] MEDS: vancomycin HCL 750 MG in 0.9 % Sodium Chloride 250 ML 265 MG IV ×2 (08:10→19:37)
[2023-08-09] MEDS: Metoprolol Tartrate 25 MG TABLET PO ×2 (08:11→20:58)
[2023-08-09] MEDS: Atorvastatin Calcium 80 MG TABLET PO (08:11)
[2023-08-09] MEDS: lisinopriL 5 MG TABLET PO (08:11)
[2023-08-09] MEDS: Aspirin Enteric Coated 81 MG TABLET.DR PO (08:11)
[2023-08-09] MEDS: Empagliflozin 10 MG TABLET PO (08:11)
--- NOTE | 2023-08-09 08:33 | P.PNIM_ITS ---
Subjective Subjective Date of Service: 08/09/23 Physical Exam 2 Vital Signs: Vital Signs: Last Vital Signs Temp 97.5 F 08/09/23 07:13 Pulse 74 08/09/23 07:13 Resp 18 08/09/23 07:13 BP 103/58 L 08/09/23 07:13 Pulse Ox 100 08/09/23 07:13 O2 Del Method Room Air 08/09/23 07:13 BMI result Body Mass Index 34.3 Const: Other: General: AO X 3, no acute distress Resp: CTA bilateral CVS: S1,S2,RRR GI: +BS, NT, no distention Skin: 08/08 Neuro: motor grossly intact Psych: appropriate affect Objective Data Active Medications Acetaminophen (Acetaminophen 325 Mg Tablet) 650 mg PO Q6H PRN PRN Reason: Pain, Mild (Pain Scale 1-3) Aspirin (Aspirin Enteric Coated 81 Mg Tablet.) 81 mg PO DAILY [facility] Last Admin: 08/09/23 08:11 Dose: 81 mg Documented By: RENETTA Atorvastatin Calcium (Atorvastatin Calcium 80 Mg Tablet) 80 mg PO DAILY [facility] Last Admin: 08/09/23 08:11 Dose: 80 mg Documented By: RENETTA Dextrose (Dextrose 50 % 25 Gm/50 Ml Syringe) 25 gm IVPUSH Q15M PRN; Protocol PRN Reason: per Hypoglycemia Standing Ord. Empagliflozin (Empagliflozin 10 Mg Tablet) 10 mg PO DAILY [facility] Last Admin: 08/09/23 08:11 Dose: 10 mg Documented By: RENETTA Enoxaparin Sodium (Enoxaparin Sodium 40 Mg/0.4 Ml Syringe) 40 mg SUBCUT Q24H [facility] Last Admin: 08/08/23 10:44 Dose: 40 mg Documented By: MARVIN Glucose (Glucose Gel 15 Gm Gel..Gram.) 15 gm PO Q15M PRN; Protocol PRN Reason: per Hypoglycemia Standing Ord. Vancomycin HCl 750 mg/ Sodium (Chloride) 265 mls @ 265 mls/hr IV Q12H [facility] Last Admin: 08/09/23 08:10 Dose: 265 mls/hr Documented By: RENETTA Insulin Glargine (Insulin Glargine,Hum.Rec.Anlog 100 Unit/Ml 10 Ml Vial) 25 unit SUBCUT BEDTIME [facility] Last Admin: 12/21/23 20:54 Dose: 25 unit Documented By: ANANDA Insulin Human Lispro (Insulin Lispro 100 Unit/Ml 3 Ml Vial) 0 unit SUBCUT QIDACHS [facility]; Protocol Last Admin: 08/09/23 08:09 Dose: 2 unit Documented By: RENETTA Lisinopril (Lisinopril 5 Mg Tablet) 5 mg PO DAILY [facility]; Protocol Last Admin: 08/09/23 08:11 Dose: 5 mg Documented By: RENETTA Magnesium Hydroxide (Milk Of Magnesia 30 Ml Oral.Susp) 30 ml PO DAILY PRN PRN Reason: Constipation Metformin HCl (Metformin Hcl Er 500 Mg Tab.Er.24h) 1,000 mg PO BID [facility] Last Admin: 08/09/23 08:10 Dose: 1,000 mg Documented By: RENETTA Metoprolol Tartrate (Metoprolol Tartrate 25 Mg Tablet) 25 mg PO BID [facility]; Protocol Last Admin: 08/09/23 08:11 Dose: 25 mg Documented By: RENETTA Morphine Sulfate (Morphine Sulfate 2 Mg/Ml Cartridge) 2 mg IVPUSH Q6H PRN; Protocol PRN Reason: Pain, Severe (Pain Scale 7-10) Pt Own (Ticagrelor [ Brilinta] 60 Mg Tablet) 60 mg PO BID [facility] Last Admin: 08/09/23 08:12 Dose: 60 mg Documented By: RENETTA Nystatin (Nystatin Powder 15 Gm Bottle) 1 appl TOPICAL QID [facility]; Protocol Last Admin: 08/08/23 21:22 Dose: 1 appl Documented By: ANANDA Ondansetron HCl (Ondansetron Hcl 4 Mg/2 Ml Vial) 4 mg IVPUSH Q8H PRN PRN Reason: Nausea and Vomiting Last Admin: 08/07/23 18:27 Dose: 4 mg Documented By: ANANDA Oxycodone HCl (Oxycodone Hcl Immed Release 5 Mg Tablet) 5 mg PO Q6H PRN PRN Reason: Pain, Severe (Pain Scale 7-10) Last Admin: 08/08/23 22:42 Dose: 5 mg Documented By: ANANDA Pharmacy Consult (Consult Rx Vancomycin Dosing) 1 each MISCELLANE DAILY PRN PRN Reason: Consult order Sodium Chloride (0.9 % Sodium Chloride Flush 3 Ml Syringe) 3 ml IVFLUSH QSHIFT [facility] Last Admin: 08/09/23 08:09 Dose: 3 ml Documented By: DOBROB Labs 08/07/23 10:53 08/09/23 05:30 Labs: Laboratory Results - last 24 hr 08/08/23 08/08/23 08/08/23 09:33 10:58 15:30 Hold Purple Top Estim Creat Clear Calc 57.4 Estimated GFR 52 POC Glucose 177 H 210 H Random Vancomycin 08/08/23 08/08/23 08/09/23 18:02 19:49 05:30 Hold Purple Top SEE NOTE Estim Creat Clear Calc 74.2 Estimated GFR > 60 POC Glucose 239 H Random Vancomycin 16.0 08/09/23 07:23 Hold Purple Top Estim Creat Clear Calc Estimated GFR POC Glucose 157 H Random Vancomycin Microbiology Microbiology Results: Microbiology 08/07/23 11:51 Blood Culture - Preliminary Blood - Venous No growth after 24 hours. 08/07/23 11:51 Blood Culture - Preliminary Blood - Venous No growth after 24 hours. 08/07/23 Unknown Urine Culture - Final Urine clean catch - Urine choudhary top Streptococcus pyogenes (Grp A) Assessment and Plan (1) Intertrigo: Status: Acute (2) Cellulitis: Status: Acute Plan 68 yo F w pmhx of Ischemic CMP s/p stent w full recovery in EF to 55-60%, Poorly controlled diabetes, HTN, HLP, history of PE treated with Apixiban, poorly controlled diabetes here with intertriginous candidiasis with superimposed bacterial infection under breasts and inguinal folds 1/ intertriginous candidiasis/?Cellulitis under breast--appearance most consitent with fungal rash -Nystatin Powder to keep area -Vancomycin empirically, probably change to PO Doxy -considering systemic antifungal -Wound care consult recommendation noted -diabetes control 2/ Diabetes, A1C of 10 -continue Lantus, jardiance, metformin add SSI. Hold gl 3/HLD--continue Lipitor 4/ HTN--continue Lisinopril continue Lisinpril and metoprolol 4/ h/o CAD--continue Brilanta, metoprolol, ASA and Lipitor DVT prophylaxis: lovenox full code need for inpt: IV Abx for extensive cellulitis under breast Quality Stroke Does the patient have a stroke diagnosis?: No VTE Prior VTE?: Yes VTE Risk Level:: Medical - moderate - high VTE Device Contraindication: Treatment Not Indicated VTE Drug Contraindication: N/A - Med Ordered
--- NOTE | 2023-08-09 10:39 | MHC.CM.PN ---
PER MD ROUNDS, PT WILL LIKELY DC TOMORROW DCP REMAINS HOME WITH NO SERVICES VIA [facility]
[2023-08-09 11:08] LABS: Glucose, Whole Blood 174 mg/dL (60-115)
[2023-08-09] MEDS: Miconazole 2 % Extra Thick Cr 56.7 Gm Tube 1 APPL TOPICAL ×2 (11:42→21:02)
[2023-08-09] MEDS: Enoxaparin Sodium 40 MG/0.4 ML SYRINGE SUBCUT (11:42)
[2023-08-09] MEDS: Fluconazole in NaCl,Iso-Osm 200 MG/100 ML PIGGYBACK 100 MG IV (11:42)
[2023-08-09 15:08] VITALS: BP 117/56; PULSE 78; RESP 18; TEMP 36.4; O2SAT 97
--- NOTE | 2023-08-09 15:53 | P.CNID_ITS ---
History of Present Illness Data of Consult Service Date: 08/09/23 Requesting physician: [facility] Primary Care Provider: ARSH Delacruz HPI Reason for consult: rash She presents with painful superficial rash under breast area and in groin area. She has had this for last four days and did take one Diflucan 150 mg po She also reports nausea and vomiting. She did have areas of itching as well. Blood cultures negative. Review of Systems 2 Review of Systems: Yes all other systems are reviewed and are negative [facility] Past Medical History Medical History SWETA (acute kidney injury) HTN (hypertension) Family History Family history: reviewed and not pertinent Surgical History Surgical History History of left knee replacement Hx of heart artery stent Social History Social History Household Members: Spouse Housing: House Do you presently have visiting nurse or other home services: Yes Comment: ambulates with walker Patient Tobacco Use Status: Never used Tobacco Smoked in Last 30 Days: No Use of substances other than those prescribed or required for medical reasons: No Currently Displaying Signs/Symptoms of Drug Intoxication Withdrawal: No Have you been hit, kicked, punched, or otherwise hurt by someone within the past year? If so, by whom?: No Do you feel safe in your current relationship?: Yes Is there a partner from a previous relationship who is making you feel unsafe now?: No Are you made to feel afraid or neglected: No [employer] Healthcare Practices: synagogue Advance Directives: No Advance Directives Information Provided: Yes Do you have thoughts of harming others: None Do you have a plan to hurt others: No Plan Recently lost weight without trying: No Nutrition Risks: No Nutritional Risk Patient : No : No Poor oral hygiene: No service: No Meds Allergies Allergy/AdvReac Type Severity Reaction Status Date / Time amoxicillin AdvReac Headache Verified 08/07/23 11:11 Active Medications: Current Medications Acetaminophen (Acetaminophen 325 Mg Tablet) 650 mg PO Q6H PRN PRN Reason: Pain, Mild (Pain Scale 1-3) Aspirin (Aspirin Enteric Coated 81 Mg Tablet.) 81 mg PO DAILY [facility] Last Admin: 08/09/23 08:11 Dose: 81 mg Atorvastatin Calcium (Atorvastatin Calcium 80 Mg Tablet) 80 mg PO DAILY [facility] Last Admin: 08/09/23 08:11 Dose: 80 mg Dextrose (Dextrose 50 % 25 Gm/50 Ml Syringe) 25 gm IVPUSH Q15M PRN; Protocol PRN Reason: per Hypoglycemia Standing Ord. Empagliflozin (Empagliflozin 10 Mg Tablet) 10 mg PO DAILY [facility] Last Admin: 08/09/23 08:11 Dose: 10 mg Enoxaparin Sodium (Enoxaparin Sodium 40 Mg/0.4 Ml Syringe) 40 mg SUBCUT Q24H [facility] Last Admin: 08/09/23 11:42 Dose: 40 mg Glucose (Glucose Gel 15 Gm Gel..Gram.) 15 gm PO Q15M PRN; Protocol PRN Reason: per Hypoglycemia Standing Ord. Vancomycin HCl 750 mg/ Sodium (Chloride) 265 mls @ 265 mls/hr IV Q12H [facility] Last Infusion: 08/09/23 09:55 Dose: Infused Insulin Glargine (Insulin Glargine,Hum.Rec.Anlog 100 Unit/Ml 10 Ml Vial) 25 unit SUBCUT BEDTIME [facility] Last Admin: 08/08/23 20:54 Dose: 25 unit Insulin Human Lispro (Insulin Lispro 100 Unit/Ml 3 Ml Vial) 0 unit SUBCUT QIDACHS [facility]; Protocol Last Admin: 08/09/23 11:43 Dose: 2 unit Lisinopril (Lisinopril 5 Mg Tablet) 5 mg PO DAILY [facility]; Protocol Last Admin: 08/09/23 08:11 Dose: 5 mg Magnesium Hydroxide (Milk Of Magnesia 30 Ml Oral.Susp) 30 ml PO DAILY PRN PRN Reason: Constipation Metformin HCl (Metformin Hcl Er 500 Mg Tab.Er.24h) 1,000 mg PO BID [facility] Last Admin: 08/09/23 08:10 Dose: 1,000 mg Metoprolol Tartrate (Metoprolol Tartrate 25 Mg Tablet) 25 mg PO BID [facility]; Protocol Last Admin: 08/09/23 08:11 Dose: 25 mg Miconazole Nitrate (Miconazole 2 % Extra Thick Cr 56.7 Gm Tube) 1 appl TOPICAL BID [facility]; Protocol Last Admin: 08/09/23 11:42 Dose: 1 appl Morphine Sulfate (Morphine Sulfate 2 Mg/Ml Cartridge) 2 mg IVPUSH Q6H PRN; Protocol PRN Reason: Pain, Severe (Pain Scale 7-10) Pt Own (Ticagrelor [ Brilinta] 60 Mg Tablet) 60 mg PO BID [facility] Last Admin: 08/09/23 08:12 Dose: 60 mg Ondansetron HCl (Ondansetron Hcl 4 Mg/2 Ml Vial) 4 mg IVPUSH Q8H PRN PRN Reason: Nausea and Vomiting Last Admin: 08/07/23 18:27 Dose: 4 mg Oxycodone HCl (Oxycodone Hcl Immed Release 5 Mg Tablet) 5 mg PO Q6H PRN PRN Reason: Pain, Severe (Pain Scale 7-10) Last Admin: 08/08/23 22:42 Dose: 5 mg Pharmacy Consult (Consult Rx Vancomycin Dosing) 1 each MISCELLANE DAILY PRN PRN Reason: Consult order Sodium Chloride (0.9 % Sodium Chloride Flush 3 Ml Syringe) [address] [facility] [facility] Last Admin: 08/09/23 08:09 Dose: 3 ml Home Medications Medication Instructions Recorded Confirmed Last Taken Type alendronate 70 mg tablet 70 mg PO WE 08/07/23 08/07/23 Unknown History aspirin 81 mg tablet,delayed 81 mg PO DAILY 08/07/23 08/07/23 Unknown History release atorvastatin 80 mg tablet 80 mg PO DAILY 08/07/23 08/07/23 Unknown History empagliflozin 10 mg tablet 10 mg PO DAILY 08/07/23 08/07/23 Unknown History (Jardiance) fluconazole 150 mg tablet 150 mg PO ONCE PRN infection 08/07/23 08/07/23 08/05/23 History glyburide 5 mg tablet 10 mg PO BID 08/07/23 08/07/23 Unknown History insulin aspart U-100 100 unit/mL 13 unit subcut TIDWM 08/07/23 08/07/23 Unknown History (3 mL) subcutaneous pen (Novolog FlexPen U-100 Insulin aspart) insulin glargine 100 unit/mL (3 32 unit subcut QPM 08/07/23 08/07/23 Unknown History mL) subcutaneous pen (Basaglar KwikPen U-100 Insulin) ketoconazole 2 % topical cream 1 appl topical BID PRN Rash 08/07/23 08/07/23 Unknown History lisinopril 5 mg tablet 5 mg PO DAILY 08/07/23 08/07/23 Unknown History metformin 500 mg tablet,extended 1,000 mg PO BID 08/07/23 08/07/23 Unknown History release 24 hr metoprolol tartrate 25 mg tablet 25 mg PO BID 08/07/23 08/07/23 Unknown History nystatin 100,000 unit/gram topical 1 appl topical QID PRN Rash 08/07/23 08/07/23 Unknown History powder (Nyamyc) oxycodone-acetaminophen 5 mg-325 1 tab PO Q8H PRN pain 08/07/23 08/07/23 Unknown History mg tablet ticagrelor 60 mg tablet (Brilinta) 60 mg PO BID 08/07/23 08/07/23 Unknown History Physical Exam 2 Vital Signs: Vital Signs: Last Vital Signs Temp 97.6 F 08/09/23 15:08 Pulse 78 08/09/23 15:08 Resp 18 08/09/23 15:08 BP 117/56 L 08/09/23 15:08 Pulse Ox 97 08/09/23 15:08 O2 Del Method Room Air 08/09/23 15:08 BMI result Body Mass Index 34.3 Const: Other: very high BMI General: cooperative HEENT: Head: Yes normal to inspection Face and sinus: Yes normal facial exam Mouth: Normal oral and palatal mucosa present Teeth and gingiva: d entition normal Eyes: General: appearance normal, both eyes and all related structures P upils: Equal, round and reactive pupils present Resp: Effort & Inspection: normal respiratory effort Cardio: Rate: regular rate Rhythm: regular rhythm GI: Palpation (GI): Soft to palpation and nontender : General: Yes no CVA tenderness Back/Spine/Pelvis: Back: no CVA tenderness Skin: Other: intertriginous fungal infection groin and periarea and bilateral axilla no signs of abscess upper border left axilla area slightly reddened Neuro: General: moves all extremities Cranial nerves: Yes Equal, round and reactive pupils present Extrem: General: Yes normal to inspection Psych: Appearance: grossly normal Results Labs 08/07/23 10:53 08/09/23 05:30 Labs: BMP 08/09/23 05:30 Creatinine 0.82 Microbiology Microbiology Results: Microbiology 08/07/23 11:51 Blood - Venous Blood Culture - Preliminary No growth after 48 hours. 08/07/23 11:51 Blood - Venous Blood Culture - Preliminary No growth after 48 hours. 08/07/23 Unknown Urine clean catch - Urine choudhary top Urine Culture - Final Streptococcus pyogenes (Grp A) Assessment and Plan (1) Intertrigo: Status: Acute There is fungal infection axilla and groin probably related to DM There is no cellulitis or abscess except small cellulitis area top left axilla lesion. Would switch to po Diflucan 150 mg weekly for four weeks. Po Doxycycline for a week. Good hygiene and topical antifungals,slightly fuse cutter application (2) Cellulitis: Status: Acute
[2023-08-09 16:20] LABS: Glucose, Whole Blood 155 mg/dL (60-115)
[2023-08-09 20:28] LABS: Glucose, Whole Blood 151 mg/dL (60-115)
[2023-08-09] MEDS: Insulin Glargine,Hum.rec.anlog 100 UNIT/ML 10 ML VIAL 25 UNIT SUBCUT (20:57)
[2023-08-09 20:59] VITALS: BP 112/55; PULSE 75; RESP 16; TEMP 36.7; O2SAT 98
[2023-08-10] VITALS: BP 135/62; PULSE 74; RESP 16; TEMP 36.6; O2SAT 98
[2023-08-10] MEDS: Acetaminophen 325 MG TABLET 650 MG PO (05:09)
[2023-08-10 06:27] LABS: Vancomycin Trough 16.5 mcg/mL (10.0-20.0)
[2023-08-10 06:28] LABS: Estimated Glomerular Filt Rate > 60
[2023-08-10] MEDS: 0.9 % Sodium Chloride Flush 3 ML SYRINGE IVFLUSH (07:46)
[2023-08-10] MEDS: vancomycin HCL 750 MG in 0.9 % Sodium Chloride 250 ML 265 MG IV (07:46)
[2023-08-10 07:54] LABS: Glucose, Whole Blood 146 mg/dL (60-115)
[2023-08-10] MEDS: lisinopriL 5 MG TABLET PO (07:55)
[2023-08-10] MEDS: Atorvastatin Calcium 80 MG TABLET PO (07:55)
[2023-08-10] MEDS: Empagliflozin 10 MG TABLET PO (07:55)
[2023-08-10] MEDS: metFORMIN HCl ER 500 MG TAB.ER.24H 1000 MG PO (07:55)
[2023-08-10] MEDS: Metoprolol Tartrate 25 MG TABLET PO (07:55)
[2023-08-10] MEDS: Aspirin Enteric Coated 81 MG TABLET.DR PO (07:56)
[2023-08-10 08:00] VITALS: BP 118/58; PULSE 75; RESP 18; TEMP 36.1; O2SAT 100
[2023-08-10] MEDS: Miconazole 2 % Extra Thick Cr 56.7 Gm Tube 1 APPL TOPICAL (08:05)
--- NOTE | 2023-08-10 09:36 | P.DS_ITS ---
DS: Providers Provider Date of Service: 08/10/23 Date of admission: 08/07/23 13:30 Primary care physician: ARSH Delacruz Consults: 08/07/23 17:21 Consult to Wound Care Routine Reason for consultation: wound under folds 08/09/23 07:41 Consult to Infectious Diseases Routine Consulting Provider: [facility] [place] Infectious Disease Reason for consultation: Cellulitis DS: Diagnosis Discharge Diagnosis (1) Intertrigo: Status: Acute (2) Cellulitis: Status: Acute DS: Summary Hospital Course Hospital Course: Chief Complaint: Skin infection 68 yo F w pmhx of Ischemic CMP s/p stent w full recovery in EF to 55-60%, Poorly controlled diabetes, HTN, HLP, history of PE treated with Apixiban. She is here with skin excoriation underwent breasts and groin area, initially started as fungal rash and she was using over the counter Nystatin but infact has gotten worse, despite the fact that she has also been taking Keflex for a finger in fection. She has no fever or chills, She states her sugars are generally ok with Fasting sugars around 160s Hospital course: Patient was treated for intertriginous candidiasis under breast and inguinal folds with possible superimposed Cellulitis. Mnagement consited of IV Vanco, topical Nystatin later changed to Miconazol cream by wound care suggestion. She was evaluated by ID with recommendation to treat with Oral Diflucan 150 mg weekly for 4 weeks, Doxycyline 100 mg twice daily for 1 week, and to continue topical miconazole. Advised to keep the area as dry as possible and to adhere to diabetes regimen 2/ Diabetes, A1C of 10, Blood sugar seem ok, presently fasting of 146, suggest continuing home regimen, and follow up with PCP for further adjustment as needed -continue Lantus, jardiance, metformin add SSI. Hold gl 3/HLD--continue Lipitor 4/ HTN--continue Lisinopril continue Lisinpril and metoprolol 4/ h/o CAD--continue Brilanta, metoprolol, ASA and Lipitor Time Attestation Discharge coordination time: Greater than 30 minutes Quality: Safe Use of Opioids Does Pt have an Active Cancer Diagnosis on the Problem List?: No Quality: Stroke Does the patient have a stroke diagnosis?: No Physical Exam Vital Signs: Vital Signs: Last Vital Signs Temp 96.9 F 08/10/23 08:00 Pulse 75 08/10/23 08:00 Resp 18 08/10/23 08:00 BP 118/58 L 08/10/23 08:00 Pulse Ox 100 08/10/23 08:00 O2 Del Method Room Air 08/10/23 08:00 BMI result Body Mass Index 34.3 Const: Other: General: AO X 3, no acute distress Resp: CTA bilateral CVS: S1,S2,RRR GI: +BS, NT, no distention Skin: rash under folds improving, compare to presentation Neuro: motor grossly intact Psych: appropriate affect DS: Data Data Completed and Pending Labs on day of discharge: Laboratory Results - last 24 hr 08/09/23 08/09/23 08/09/23 11:03 16:06 19:52 Hold Purple Top Creatinine Estim Creat Clear Calc Estimated GFR POC Glucose 174 H 155 H 151 H Vancomycin Trough 08/10/23 08/10/23 08/10/23 05:45 05:46 07:38 Hold Purple Top SEE NOTE Creatinine 0.78 Estim Creat Clear Calc 78.0 Estimated GFR > 60 POC Glucose 146 H Vancomycin Trough 16.5 Preliminary micro results at discharge 08/07/23 11:51 Blood Culture - Preliminary Blood - Venous No growth after 48 hours. 08/07/23 11:51 Blood Culture - Preliminary Blood - Venous No growth after 48 hours. Discharge Plan Discharge Anticipated Discharge Date/Time: 08/10/23 09:25 Patient Disposition: Home Health Service Discharge Diagnosis: intertriginous candidiasis, Cellulitis under breast Referrals: Edward Gotti PA [Primary Care Provider] - 1 Week Discharge Medications: New doxycycline hyclate 100 mg tablet 100 mg PO BID 7 Days Qty: 14 0RF miconazole nitrate [Inzo Antifungal] 2 % Cream 1 appl topical BID Qty: 2 0RF Protocol: Apply to: Apply to: under skin folds bid Rx Instructions: apply to inflamed folds areas Continued atorvastatin 80 mg tablet 80 mg PO DAILY glyburide 5 mg tablet 10 mg PO BID alendronate 70 mg tablet 70 mg PO WE aspirin 81 mg tablet,delayed release (DR/EC) 81 mg PO DAILY oxycodone-acetaminophen 5-325 mg tablet 1 tab PO Q8H PRN (Reason: pain) lisinopril 5 mg tablet 5 mg PO DAILY nystatin [Nyamyc] 100,000 unit/gram powder 1 appl topical QID PRN (Reason: Rash) metformin 500 mg tablet extended release 24 hr 1,000 mg PO BID metoprolol tartrate 25 mg tablet 25 mg PO BID insulin glargine [Basaglar KwikPen U-100 Insulin] 100 unit/mL (3 mL) insulin pen 32 unit subcut QPM Jardiance 10 mg tablet 10 mg PO DAILY Brilinta 60 mg tablet 60 mg PO BID ketoconazole 2 % cream 1 appl topical BID PRN (Reason: Rash) insulin aspart U-100 [Novolog FlexPen U-100 Insulin] 100 unit/mL (3 mL) insulin pen 13 unit subcut TIDWM Changed fluconazole 150 mg tablet 150 mg PO Q7D PRN (Reason: infection) Qty: 4 0RF Discharge Orders: Discharge Order (Routine); Ordered 08/10/23 Ordered By: Bear Mckee Diet: Advance to usual diet Activity on Discharge: As tolerated Stand Alone Forms: Patient Portal Discharge page Care Plan Goals: Resolution of fungal infection and prevention of further skin iritation Health Concerns: fungal skin infecton Plan of Treatment: Take Fluconazole 150 mg weekly for 4 weeks Take Doxycyline 100 mg twice daily x 1 week Apply Miconazol cream under folds area Assessment: as above
--- NOTE | 2023-08-10 09:47 | W.MHC.F2F ---
Service Date Service Date: 08/10/23 Encounter Date of encounter: 08/10/23 Reasons for Services Signs and symptoms assessed: weakness from hospialization Reason for senior living: diabetic teaching, medication management and teach disease management Homebound: Leaving the home is medically contraindicated at this time without the asist of a device and/or another person due th the listed conditions above and below. Reason homebound: unsteady gait / fall risk and weakness related to hospital stay Homebound supporting statement: homebound due to weakness from hospitalization, doesn't drive and therefore needs the assistance of another person Certification: Based on the above findings, I certify that this patient is confined to the home and needs intermittent senior living care, physical therapy and/or speech therapy, or continues to need occupational therapy. The patient is under my care, and I have initiated the establishment of the plan of care. The patient will be followed by a physician who will periodically review the plan of care. Time Spent With Patient Time: Total time managing care of this patient today ____ minutes.
--- NOTE | 2023-08-10 09:47 | MHC.CM.PN ---
pt dcd today home no services
[2023-08-10 12:09] LABS: Glucose, Whole Blood 150 mg/dL (60-115)
--- NOTE | 2023-08-10 12:14 | HE.PHANOTE ---
VANCO LEVEL 16.5. INCREASE DOSE UP TO 1 GM Q12H PER INSIGHT, AUC OF 521
== END 2023-08-10 13:00 | disposition home health service (06) | DRG 607 ==
LOC: HO.ED 12:07 → HO.EDOVER 13:37 → HO.S3 14:03
PROVIDERS: Physician Assistant; Admitting Provider Internal Medicine; Emergency Provider Emergency Medicine Emergency Medical Services; PCP Physician Assistant Medical; Visit Provider Internal Medicine
DX: L30.4 Erythema intertrigo (principal); L03.314 Cellulitis of groin; L03.313 Cellulitis of chest wall; E11.65 Type 2 diabetes mellitus with hyperglycemia; E78.5 Hyperlipidemia, unspecified; I10 Essential (primary) hypertension; Z20.822 Contact with and (suspected) exposure to COVID-19; Z79.4 Long term (current) use of insulin; Z79.84 Long term (current) use of oral hypoglycemic drugs; Z79.899 Other long term (current) drug therapy
CPT/HCPCS: 0241U; 36415; 80053; 80202; 81001; 81003; 82565; 82947; 83036; 83605; 83690; 83735; 85025; 85652; 86140; 87040; 87086; 87147; 99285; J1450; J1650; J2270; J2405; J2543; J3370

== ENCOUNTER → 2023-08-07 13:30 | Outpatient (BNV) | payer MEDICARE, OTHER, SELFPAY | PROVIDERS: Admitting Provider Internal Medicine; Emergency Provider Emergency Medicine Emergency Medical Services; PCP Physician Assistant Medical; Visit Provider Internal Medicine | DX: L30.4 Erythema intertrigo (principal); L03.90 Cellulitis, unspecified | CPT/HCPCS: 99223; 99232; 99239; G0180 ==

== ENCOUNTER → 2023-08-07 13:30 | Outpatient (BNV) | payer MEDICARE, OTHER, SELFPAY | PROVIDERS: Admitting Provider Internal Medicine; Emergency Provider Emergency Medicine Emergency Medical Services; PCP Physician Assistant Medical; Visit Provider Internal Medicine | DX: L30.4 Erythema intertrigo (principal); L03.90 Cellulitis, unspecified | CPT/HCPCS: 99222 ==

== ENCOUNTER 2023-09-02 08:45 | Inpatient (IN) | payer MEDICARE, OTHER, SELFPAY ==
--- NOTE | 2023-09-02 | ECG_ITS ---
Test Reason : QTC CHECK Blood Pressure : / mmHG Vent. Rate : 083 BPM Atrial Rate : 083 BPM P-R Int : 160 ms QRS Dur : 088 ms QT Int : 374 ms P-R-T Axes : -02 035 037 degrees QTc Int : 439 ms Normal sinus rhythm Low voltage QRS Septal infarct , age undetermined Abnormal ECG When compared with ECG of 21-JUN-2022 19:38, Septal infarct is now Present Referred By: Fidelina Ramirez Electronically Signed By:TERRY LUNA
[2023-09-02 08:48] VITALS: BP 121/63; BP 125/79; PULSE 100; RESP 20; TEMP 36.9; O2SAT 100; O2SAT 98; BMI 34.1
--- NOTE | 2023-09-02 09:13 | ED.GENADULT ---
HPI - General Adult General Chief complaint: Skin/Abscess/Foreign Body Stated complaint: UNDER BREASTS/GROING CELLULITIS/INF PER EMS Time Seen by Provider: 09/02/23 08:57 Source: patient and EMS Mode of arrival: EMS Limitations: no limitations History of Present Illness HPI narrative: 68-year-old female with past medical history significant for ischemic cardiomyopathy, poorly-controlled diabetes hemoglobin A1c is 9, HTN, HLP, history of PE treated with apixaban patient for the past month been treated for under left breast fungal infection that superimposed with a bacterial infection patient used nystatin and Keflex, patient returned to the hospital require admission due to worsening of the cellulitis under her left breast, during her hospital course patient received IV vanco and topical nystatin/miconazole patient had an ID consultation recommended to discharge home on Diflucan 150 mg weekly for 4 weeks and doxycycline twice a day for 1 week patient returned today that she is now due to severe pain in bed can not ambulate much and spreading of the excoriated skin under left and right breast now spreading to both groin area and to the buttock area. Patient stated that she is compliant with the medication was prescribed to her. Patient returned today for increased pain and increased spreading of the infection to the other side of her body with increased greenish discharge from the skin Related Data Home Medications Medication Instructions Recorded Confirmed alendronate 70 mg tablet 70 mg PO WE 08/07/23 08/07/23 aspirin 81 mg tablet,delayed 81 mg PO DAILY 08/07/23 08/07/23 release atorvastatin 80 mg tablet 80 mg PO DAILY 08/07/23 08/07/23 empagliflozin 10 mg tablet 10 mg PO DAILY 08/07/23 08/07/23 (Jardiance) glyburide 5 mg tablet 10 mg PO BID 08/07/23 08/07/23 insulin aspart U-100 100 unit/mL 13 unit subcut TIDWM 08/07/23 08/07/23 (3 mL) subcutaneous pen (Novolog FlexPen U-100 Insulin aspart) insulin glargine 100 unit/mL (3 32 unit subcut QPM 08/07/23 08/07/23 mL) subcutaneous pen (Basaglar KwikPen U-100 Insulin) ketoconazole 2 % topical cream 1 appl topical BID PRN Rash 08/07/23 08/07/23 lisinopril 5 mg tablet 5 mg PO DAILY 08/07/23 08/07/23 metformin 500 mg tablet,extended 1,000 mg PO BID 08/07/23 08/07/23 release 24 hr metoprolol tartrate 25 mg tablet 25 mg PO BID 08/07/23 08/07/23 nystatin 100,000 unit/gram topical 1 appl topical QID PRN Rash 08/07/23 08/07/23 powder (Nyamyc) oxycodone-acetaminophen 5 mg-325 1 tab PO Q8H PRN pain 08/07/23 08/07/23 mg tablet ticagrelor 60 mg tablet (Brilinta) 60 mg PO BID 08/07/23 08/07/23 Previous Rx's Medication Instructions Recorded doxycycline hyclate 100 mg tablet 100 mg PO BID 7 days #14 tabs 08/10/23 fluconazole 150 mg tablet 150 mg PO Q7D 2 doses #4 tabs 08/10/23 miconazole nitrate 2 % topical 1 appl topical BID #2 grams 08/10/23 cream (Inzo Antifungal) Allergies Allergy/AdvReac Type Severity Reaction Status Date / Time amoxicillin AdvReac Headache Verified 08/07/23 11:11 Review of Systems Review of Systems: All other systems are reviewed and are negative Constitutional: Reports as per HPI and Reports no additional constitutional complaints Eyes: Reports as per HPI and Reports no additional eye complaints Reports system reviewed and no additional complaints, except as documented Cardiovascular: Reports as per HPI and Reports no additional cardiovascular complaints Respiratory: Reports as per HPI and Reports no additional respiratory complaints Gastrointestinal: Reports as per HPI and Reports no additional gastrointestinal complaints Genitourinary: Reports no additional female genitourinary complaints Musculoskeletal: Reports no additional musculoskeletal complaints Skin/Breast: Reports system reviewed and no additional complaints, except as docu Psychiatric: Reports no additional psychiatric complaints Endocrine: Reports no additional endocrine complaints Hematologic/Lymphatic: Reports no additional hematologic/lymphatic complaints Allergic/Immunologic: Reports no additional allergic/immunologic complaints Reports system reviewed and no additional complaints, except as documented and Reports Abnormal speech present PMFSH Past Medical History Onset Date is defined in the Problem List Problems that require an onset date and time if occurred within 24 hrs of arrival to the ED Aortic Dissection and Rupture; Neurologic impairment; Cardiopulmonary Arrest; Endotracheal Intubation; Insertion or Replacement of Mechanical Circulatory Assist Device Medical History SWETA (acute kidney injury) HTN (hypertension) Surgical History History of left knee replacement Hx of heart artery stent Social History Social History Household Members: Spouse Housing: House Do you presently have visiting nurse or other home services: Yes Comment: ambulates with walker Patient Tobacco Use Status: Never used Tobacco Smoked in Last 30 Days: No Use of substances other than those prescribed or required for medical reasons: No Advance Directives: No Advance Directives Information Provided: Yes service: No Physical Exam ED Vital Signs: Vital Signs - 24 hr 09/02/23 08:48 Temperature 98.5 F Pulse Rate 100 Respiratory Rate 20 Blood Pressure 121/63 Pulse Oximetry 98 Oxygen Delivery Method Room Air BMI result Body Mass Index 34.1 Vital signs have been reviewed and appear to be correct. Blood pressure elevated. Heart rate normal. Respiratory rate normal. Temperature normal. Oxygen saturation normal. Appearance: Alert. Oriented X3. No acute distress. Head: Normal external exam. Normocephalic. Atraumatic. No Sue signs noted. No raccoon eyes noted Eyes: PERRLA. EOMI. Conjunctiva and sclera normal. Eyelids normal. ENT: TM's Normal. Pharynx normal. Uvula midline. Moist mucous membranes. No trismus noted. No drooling noted. No muffled voice noted. Neck: Normal inspection. Neck supple. FROM. No adenopathy. Thyroid Normal. No meningeal signs. No neck mass noted. CVS: Normal heart rate and rhythm. Heart sound normal. No murmurs noted. Pulses normal throughout. Respiratory: No respiratory distress. Painless inspiration. Breath sounds normal. No wheezes/rales/rhonchi noted. Chest nontender. No accessory muscle usage noted or decreased air movement noted. Abdomen: Soft and nontender. Bowel sounds normal in all 4 quadrants. No distention noted. No organomegaly noted. No visible injury noted. Back: No CVA tenderness. Full range of motion noted. Skin: Intertriginous fungal infection to both groin and under both breasts left more than right, with new spread in the buttock area with foul smell in greenish discharge, no abscesses is appreciated. Extremities: No lower extremity edema. Extremities exhibit normal range of motion. Extremities nontender. Neuro: Oriented X 3. Cranial nerve exam: II-XII are grossly intact No motor deficit. No sensory deficit. Reflexes normal. Course Reevaluation(s) Reevaluation #1: 68-year-old female presented with worsening of intertrigo/cellulitis despite using p.o. antibiotics/antifungal at home, patient is known to be a poor diabetic with BS of 251. Will admit the patient for pain control, IV Zosyn, continue with Diflucan will consider inpatient ID consultation case discussed with hospitalist for admission. No sepsis or septic shock. Time: 10:18 Medications Administered Discontinued Medications Generic Name Dose Route Start Last Admin Trade Name Raffaeleq PRN Reason Stop Dose Admin Fluconazole 150 mg 09/02/23 09:28 09/02/23 09:47 Fluconazole 150 Mg Tablet PO 09/02/23 09:29 150 mg ONCE ONE Administration Hydromorphone HCl 2 mg 09/02/23 09:31 09/02/23 09:47 Hydromorphone Hcl 2 Mg/Ml Vial IVPUSH 09/02/23 09:32 2 mg ONCE ONE Administration Protocol Sodium Chloride 1,000 mls @ 999 mls/hr 09/02/23 09:06 09/02/23 09:24 Ns IV 09/02/23 10:06 999 mls/hr .Q1H1M ONE Administration Piperacillin Sod/Tazobactam 50 mls @ 100 mls/hr 09/02/23 09:28 09/02/23 09:58 Sod 3.375 gm/ Sodium Chloride IV 09/02/23 09:57 100 mls/hr ONCE ONE Administration Medical Decision Making Differential Diagnosis Differential Diagnoses: The differential diagnosis associated with the presentation includes (Fungal infection, cellulitis, electrolyte abnormality, sepsis, severe anemia.) Admission/Observation Consideration of admission/observation: Escalation of care including admission/observation considered Consult Healthcare Provider Management of the patient was discussed with: Hospitalist (Dr. August) Lab Data MDM Lab Attestation statement: I reviewed the patient's lab results. 09/02/23 09:41 09/02/23 09:41 Labs: Lab Results 09/02/23 Range/Units 09:41 WBC 6.6 (4.8-10.8) X10*3/uL RBC 3.97 L (4.20-5.50) X10*6/uL Hgb 11.2 L (12.0-16.0) g/dl Hct 36.4 L (37.0-47.0) % MCV 91.7 (80.0-98.0) fL MCH 28.2 (27.0-33.0) pg MCHC 30.8 L (31.0-35.0) g/dl RDW 14.5 (11.0-16.0) % Plt Count 227 (160-400) X10*3/uL MPV 9.9 (9.4-12.3) fL Immature Gran % (Auto) 0.5 H (0.0-0.4) % Neut % (Auto) 74.5 H (45-73) % Lymph % (Auto) 10.0 L (20-40) % [place] % (Auto) 10.6 (2-11) % Eos % (Auto) 3.8 (0-4) % Baso % (Auto) 0.6 (0-2) % Lymph # (Auto) 0.7 L (1.2-4.9) X10*3/uL [place] # (Auto) 0.7 (0.1-1.2) X10*3/uL Eos # (Auto) 0.3 (0.0-0.4) X10*3/uL Baso # (Auto) 0.0 (0.0-0.2) X10*3/uL Abs Immat Gran (auto) 0.03 (0.00-0.03) X10*3/uL Absolute Neuts (auto) 4.9 (2.0-8.3) x10*3/uL Absolute Nucleated RBC 0.000 (0.0-0.012) X10*3/uL Nucleated RBC % (auto) 0.0 (0.0-0.2) /100WBC Sodium 136 (135-145) mmol/L Potassium 4.3 (3.3-5.1) mmol/L Chloride 106 (96-108) mmol/L Carbon Dioxide 13 L (22-29) mmol/L Anion Gap 21 H (12-20) BUN 17 H (9-16) mg/dL Creatinine 1.15 (0.5-1.4) mg/dL Estim Creat Clear Calc 52.7 Estimated GFR 47 Random Glucose 251 H (60-115) mg/dL Lactic Acid 1.5 (0.5-2.0) mmol/L Calcium 8.8 (8.4-10.2) mg/dL Total Bilirubin 0.4 (0.0-1.0) mg/dL Direct Bilirubin 0.2 (0.0-0.5) mg/dL AST 8 (5-31) U/L ALT 11 (0-31) U/L Alkaline Phosphatase 93 (39-117) U/L Troponin I High Sens < 2.7 (<3.5-17.0) ng/L Total Protein 6.7 (6.5-8.0) g/dL Albumin 3.5 (3.5-5.0) g/dL Lipase 12 (8-78) U/L Chronic Conditions Patient?s care impacted by: Diabetes Discharge Plan Discharge Clinical Impression: Cellulitis, Intertrigo Patient Disposition: Admitted As Inpatient
[2023-09-02] MEDS: 0.9 % Sodium Chloride 1,000 ML 999 ML IV (09:24)
[2023-09-02 09:46] LABS: MANUAL DIFF FLAG NO
[2023-09-02] MEDS: Fluconazole 150 MG TABLET PO (09:47)
[2023-09-02] MEDS: HYDROmorphone HCl 2 MG/ML VIAL IVPUSH (09:47)
[2023-09-02 09:56] LABS: Basophils Percent Auto 0.6 % (0-2); Eosinophils Absolute Auto 0.3 X10*3/uL (0.0-0.4); Eosinophils Percent Auto 3.8 % (0-4); Hematocrit 36.4 % (37.0-47.0); Hemoglobin 11.2 g/dl (12.0-16.0); Imm Gran Abs Auto 0.03 X10*3/uL (0.00-0.03); Imm Gran Pct Auto 0.5 % (0.0-0.4); Lymphocytes Absolute Auto 0.7 X10*3/uL (1.2-4.9); Mean Corpuscular HGB Conc 30.8 g/dl (31.0-35.0); Mean Corpuscular Hemoglobin 28.2 pg (27.0-33.0); Mean Corpuscular Volume 91.7 fL (80.0-98.0); Mean Platelet Volume 9.9 fL (9.4-12.3); Monocytes Absolute Auto 0.7 X10*3/uL (0.1-1.2); Monocytes Percent Auto 10.6 % (2-11); Neutrophils Absolute Auto 4.9 x10*3/uL (2.0-8.3); Neutrophils Percent Auto 74.5 % (45-73); Platelet Count 227 X10*3/uL (160-400); Red Blood Count 3.97 X10*6/uL (4.20-5.50); Red Cell Distribution Width 14.5 % (11.0-16.0); White Blood Count 6.6 X10*3/uL (4.8-10.8)
[2023-09-02 09:57] LABS: Lactic Acid 1.5 mmol/L (0.5-2.0)
[2023-09-02] MEDS: Piperacillin Sodium/Tazobactam 3.375 GM in 0.9 % Sodium Chloride 50 ML IV (09:58)
[2023-09-02 10:05] LABS: Alanine Aminotransferase 11 U/L (0-31); Albumin Level 3.5 g/dL (3.5-5.0); Alkaline Phosphatase 93 U/L (39-117); Anion Gap 21 (12-20); Aspartate Amino Transferase 8 U/L (5-31); Bilirubin Direct 0.2 mg/dL (0.0-0.5); Bilirubin Total 0.4 mg/dL (0.0-1.0); Blood Urea Nitrogen 17 mg/dL (9-16); Calcium 8.8 mg/dL (8.4-10.2); Carbon Dioxide 13 mmol/L (22-29); Chloride 106 mmol/L (96-108); Creatinine Clr Calc Pharmacy 52.7; Estimated Glomerular Filt Rate 47; Glucose Random 251 mg/dL (60-115); Lipase 12 U/L (8-78); Potassium 4.3 mmol/L (3.3-5.1); Sodium 136 mmol/L (135-145); Total Protein 6.7 g/dL (6.5-8.0)
[2023-09-02 10:12] LABS: Troponin-I High Sensitivity < 2.7 ng/L (<3.5-17.0)
[2023-09-02 11:23] LABS: Influenza A PCR NEGATIVE (Negative); Influenza B PCR NEGATIVE (Negative); Resp Syncy Virus RNA Qual PCR NEGATIVE (Negative); SARS COV2 PCR INHOUSE NEGATIVE (Negative)
[2023-09-02 12:21] VITALS: BP 107/41; PULSE 75; RESP 14
--- NOTE | 2023-09-02 14:18 | PHA.MEDREC ---
Pharmacy Consult ? Medication Reconciliation Pharmacy has completed the medication reconciliation. Spoke with patient to confirm medications. She reports taking fluconazole daily since Saturday. She reports that she tried nystatin cream but she felt like the miconazole was working better so she stopped using it. She decreased her metformin due to GI side effects. She explained that she was told to hold her atorvastatin for 3 days after taking the fluconazole. (night of and 2 days after). She reports not taking any medications today besides the fluconazole that she got here.
--- NOTE | 2023-09-02 14:38 | PM.IMHP ---
History of Present Illness Date of Service: 09/02/23 Attending physician on admission: [facility] Chief Complaint: skin infection 68 year old female with history of Uncontrolled type 2 diabetes, hypertension, hyperlipidemia, history of pulmonary embolism completed course of apixaban, ischemic cardiomyopathy/hx NSTEMI with stents placed 07/10 on DAPT, HFpEF, hx uterine carcinosarcoma, who is obese with BMI >34 presented to the ED earlier today for evaluation of fungal infection of the breasts, groin, buttock. She was recent admitted to [facility] from 08/07- 08/10 for intertriginous candidiasis with superimposed cellulitis discharged on doxycycline, miconazole, and oral diflucan. She states she took meds as prescribed and pcp extended course of doxycycline x1 week which was compelted 1 week ago. She states initially felt better, but 5 days ago rash again began to worsen and feels it is now worse than previously. Her has been assisting with application of topical antifungal. Admittedly, her diabetes is not well controlled. Hgb A1c during last admission was 10.7. Not always compliant with diabetic diet. She reports severe pain under the left breast with green purulent drainage, particularly when moving and has noted new rash in the buttock/vuvlovaginal area. She is also reporting several episodes of vomiting and nausea. No abd pain, diarrhea, or fevers. She reports some constipation. On arrival, VSS. No leukocytosis. Renal function and lytes normal, except for CO2 13. ABG pending. UA/UC pending. Blood cultures pending. In the ED, given IV zosyn, 1 L IVNS, dilaudid, 150mg diflucan. Review of Systems Review of Systems: General: No fevers, malaise, unintentional weight loss Cardiovascular: No chest pain, palpitations, or leg edema Respiratory: No shortness of breath, wheezing, cough GI: No abdominal pain, nausea, vomiting, diarrhea : No dysuria, hematuria, increased urinary frequency MSK: No myalgia, back pain Neuro: No headaches, weakness, paresthesias Skin: +rash breasts, groin, buttock [facility] Medical History Uterine carcinosarcoma GERD (gastroesophageal reflux disease) CAD (coronary artery disease) NSTEMI (non-ST elevated myocardial infarction) Ischemic cardiomyopathy HLD (hyperlipidemia) Type 2 diabetes mellitus SWETA (acute kidney injury) HTN (hypertension) Surgical History History of left knee replacement Hx of heart artery stent Social History Household Members: Spouse [facility] Do you presently have visiting nurse or other home services: Yes Comment: ambulates with walker Patient Tobacco Use Status: Never used Tobacco service: No Meds Allergies Allergy/AdvReac Type Severity Reaction Status Date / Time amoxicillin AdvReac Headache Verified 08/07/23 11:11 Active Medications: Current Medications Acetaminophen (Acetaminophen 325 Mg Tablet) 650 mg PO Q6H PRN PRN Reason: Pain, Mild (Pain Scale 1-3) Atorvastatin Calcium (Atorvastatin Calcium 80 Mg Tablet) 80 mg PO DAILY SHONDA Dextrose (Dextrose 50 % 25 Gm/50 Ml Syringe) 25 gm IVPUSH Q15M PRN; Protocol PRN Reason: per Hypoglycemia Standing Ord. Enoxaparin Sodium (Enoxaparin Sodium 40 Mg/0.4 Ml Syringe) 40 mg SUBCUT Q24H SHONDA Fluconazole (Fluconazole 150 Mg Tablet) 150 mg PO Q7D SHONDA Glucose (Glucose Gel 15 Gm Gel..Gram.) 15 gm PO Q15M PRN; Protocol PRN Reason: per Hypoglycemia Standing Ord. Doxycycline Hyclate 100 mg/ (Sodium Chloride) 250 mls @ 166.67 mls/hr IV Q12H SHONDA Insulin Glargine (Insulin Glargine,Hum.Rec.Anlog 100 Unit/Ml 10 Ml Vial) 25 unit SUBCUT BEDTIME SHONDA Insulin Human Lispro (Insulin Lispro 100 Unit/Ml 3 Ml Vial) 0 unit SUBCUT QIDACHS SHONDA; Protocol Lisinopril (Lisinopril 2.5 Mg Tablet) 2.5 mg PO DAILY SHONDA; Protocol Metoprolol Tartrate (Metoprolol Tartrate 25 Mg Tablet) 25 mg PO BID SHONDA; Protocol Miconazole Nitrate (Miconazole 2 % Extra Thick Cr 56.7 Gm Tube) 1 appl TOPICAL BID SHONDA; Protocol Non-Formulary Medication (Oxycodone-Acetaminophen) 1 tab PO Q8H PRN PRN Reason: Pain, Moderate(Pain Scale 4-6) Non-Formulary Medication (Ticagrelor [Brilinta]) 60 mg PO BID [facility] Ondansetron HCl (Ondansetron Hcl 4 Mg/2 Ml Vial) 4 mg IVPUSH Q8H PRN PRN Reason: Nausea and Vomiting Senna (Sennosides 8.6 Mg Tablet) 17.2 mg PO BEDTIME PRN PRN Reason: Constipation Sodium Chloride (0.9 % Sodium Chloride Flush 3 Ml Syringe) 3 ml IVFLUSH QSHIFT [facility] Vitamin D (Cholecalciferol (Vitamin D3) 25 Mcg Tablet) 25 mcg PO DAILY [facility] Home Medications Medication Instructions Recorded Confirmed Last Taken Type alendronate 70 mg tablet 70 mg PO TOM 08/07/23 09/02/23 08/25/23 History aspirin 81 mg tablet,delayed 81 mg PO DAILY 08/07/23 09/02/23 Unknown History release atorvastatin 80 mg tablet 80 mg PO DAILY 08/07/23 09/02/23 Unknown History empagliflozin 10 mg tablet 10 mg PO DAILY 08/07/23 09/02/23 Unknown History (Jardiance) glyburide 5 mg tablet 10 mg PO BID 08/07/23 09/02/23 Unknown History insulin aspart U-100 100 unit/mL 13 unit subcut TIDWM 08/07/23 09/02/23 Unknown History (3 mL) subcutaneous pen (Novolog FlexPen U-100 Insulin aspart) insulin glargine 100 unit/mL (3 28 - 32 unit subcut QPM 08/07/23 09/02/23 Unknown History mL) subcutaneous pen (Basaglar KwikPen U-100 Insulin) lisinopril 5 mg tablet 5 mg PO DAILY 08/07/23 09/02/23 Unknown History metformin 500 mg tablet,extended 500 mg PO BID 08/07/23 09/02/23 Unknown History release 24 hr metoprolol tartrate 25 mg tablet 25 mg PO BID 08/07/23 09/02/23 Unknown History oxycodone-acetaminophen 5 mg-325 1 tab PO Q8H PRN pain 08/07/23 09/02/23 Unknown History mg tablet ticagrelor 60 mg tablet (Brilinta) 60 mg PO BID 08/07/23 09/02/23 Unknown History cholecalciferol (vitamin D3) 25 25 mcg PO DAILY 09/02/23 09/02/23 Unknown History mcg (1,000 unit) tablet Physical Exam Vital Signs and Narrative: Vital Signs: Last Vital Signs Temp 98.5 F 09/02/23 08:48 Pulse 75 09/02/23 12:21 Resp 14 09/02/23 12:21 BP 107/41 L 09/02/23 12:21 Pulse Ox 98 09/02/23 08:48 O2 Del Method Room Air 09/02/23 12:21 O2 Flow Rate 97 09/02/23 12:21 BMI result Body Mass Index 34.1 Constitutional - Awake and Alert, No apparent distress Eyes - PERRLA, EOMI Cardiovascular - S1S2, RRR, No edema Respiratory - Normal lung expansion, Normal respiratory effort, No respiratory distress, CTA bilaterally Extremities - no calf tenderness bilaterally, no swelling Skin - Warm/Dry. Extensive intertriginous candidiasis with beefy erythema covering inferior aspect of left breast extending over RUQ with foul odor and yellow/green drainage. Similar appearance in the intertriginous folds of the groins bilaterally, gluteal folds, and vulvovaginal area Neurological - Alert & oriented x3 Psychological - Appropriate affect Left breast: Left groin: Right groin: Results Labs 09/03/23 06:22 09/03/23 06:22 Labs: Laboratory Results - last 24 hr 09/02/23 09/02/23 09:41 10:40 MCV 91.7 MCH 28.2 MCHC 30.8 L RDW 14.5 Plt Count 227 MPV 9.9 Immature Gran % (Auto) 0.5 H Neut % (Auto) 74.5 H Lymph % (Auto) 10.0 L [place] % (Auto) 10.6 Eos % (Auto) 3.8 Baso % (Auto) 0.6 Lymph # (Auto) 0.7 L [place] # (Auto) 0.7 Eos # (Auto) 0.3 Baso # (Auto) 0.0 Abs Immat Gran (auto) 0.03 Absolute Neuts (auto) 4.9 Absolute Nucleated RBC 0.000 Nucleated RBC % (auto) 0.0 Anion Gap 21 H Estim Creat Clear Calc 52.7 Estimated GFR 47 Random Glucose 251 H Lactic Acid 1.5 Calcium 8.8 Total Bilirubin 0.4 Direct Bilirubin 0.2 AST 8 ALT 11 Alkaline Phosphatase 93 Total Protein 6.7 Albumin 3.5 Lipase 12 Influenza Type A (PCR) NEGATIVE Influenza Type B (PCR) NEGATIVE RSV RNA Qual (PCR) NEGATIVE SARS-CoV-2 RNA (RT-PCR) NEGATIVE Assessment and Plan (1) Intertrigo: Status: Acute (2) Cellulitis: Status: Acute Plan 68 year old female with history of Uncontrolled type 2 diabetes, hypertension, hyperlipidemia, history of pulmonary embolism completed course of apixaban, ischemic cardiomyopathy/hx NSTEMI with stents placed 07/10 on DAPT, HFpEF, hx uterine carcinosarcoma, who is obese with BMI >34 admitted for extensive intertiginous candidiasis with suspect superimposed cellulitis. #Acute on chronic intertriginuous candidiasis with suspected superimposed cellulitis Left breast -left breast, bilateral groin folds, gluteal cleft, and vuvlovaginal- appears worse compared to prior admission on review of photos in wound rn note -likely due to poorly controlled type 2 diabetes, obesity, and possibly complicated by jardiance use -IV doxycycline 100mg BID () -Diflucan 150mg weekly (09/02) -Topical miconazole after washing and thoroughly drying affected areas twice daily -recommend STOPPING jardiance on d/c -discussed the importance of better glucose control and weight loss to prevent fungal infections -wound consult -cultures pending #Acute on chronic non anion gap metabolic acidosis -beta-hydroxybutryate 5.23, glucose levels fairly well controlled at this time -no sweta, no diarrhea -Give bicarb po tid -?RTN, nephrology consult -follow bmp #Uncontrolled insulin dependent type 2 diabetes -last Hgb A1c was 10.7% -Dose adjusted basal insulin -POC glucose, diabetic diet -humalog on ssi -hold metformin, glyburide. Recommend discontinuing jardiance given recurrent candidiasis #HTN -blood pressures soft -hold lisinopril, continue metoprolol #CAD/ischemic cardiomyopathy -continue brillinta, bb, statin #HFpEF -euvolemic on exam #Obesity with BMI >34 due to excess calories -weight loss efforts encouraged DVT prophylaxis- lovenox Full code Pt requires inpt stay at least 2 midnights for management of cellulitis superimposed on extensive intertriginous candidiasis in uncontrolled diabetes requiring iv abx Quality Stroke Does the patient have a stroke diagnosis?: No VTE Prior VTE?: Yes VTE Risk Level:: Medical - moderate - high VTE Device Contraindication: Treatment Not Indicated VTE Drug Contraindication: N/A - Med Ordered
[2023-09-02] MEDS: Doxycycline Hyclate 100 MG in 0.9 % Sodium Chloride 250 ML 166.67 MG IV (14:45)
[2023-09-02] MEDS: Enoxaparin Sodium 40 MG/0.4 ML SYRINGE SUBCUT (14:45)
[2023-09-02] MEDS: 0.9 % Sodium Chloride Flush 3 ML SYRINGE IVFLUSH (14:46)
[2023-09-02 14:54] VITALS: BP 116/40; RESP 20
[2023-09-02] MEDS: Morphine Sulfate 2 MG/ML CARTRIDGE IVPUSH (14:55)
[2023-09-02 15:48] LABS: VBG Base Excess -10.7 mmol/L; VBG HCO3 14 mmol/L (22-26); VBG pCO2 31 mmHg; VBG pH 7.27 (7.32-7.43); VBG pO2 29 mmHg
[2023-09-02 15:48] LABS: Venous Blood Gas Refer to POC result
[2023-09-02] MEDS: ondansetron HCL 4 MG/2 ML VIAL IVPUSH (16:41)
[2023-09-02] MEDS: Acetaminophen 325 MG TABLET 650 MG PO (16:45)
[2023-09-02 17:26] LABS: Glucose, Whole Blood 153 mg/dL (60-115)
[2023-09-02] MEDS: Insulin Lispro 100 UNIT/ML 3 ML VIAL SUBCUT ×2 (17:32→21:29)
[2023-09-02 17:47] LABS: Beta-Hydroxybutyrate 5.23 mmol/L (0.02-0.27)
[2023-09-02 18:40] LABS: Appearance Urine Clear; Color Urine Yellow; Glucose Urine UA >=1000 mg/dL (Negative); Leukocyte Esterase Urine Moderate (2+) (Negative); Nitrite Urine Negative (Negative); PH 5.5 (5.0-9.0); Specific Gravity - Urine >= 1.030 (1.005-1.025); UMIC TRIGGER UACC YES; Urine Blood Trace (Negative); Urine Ketones >=160 mg/dL (Negative); Urine Protein 30 (1+) mg/dL (Neg-Trace)
[2023-09-02 18:42] LABS: Bacteria Urine Trace (None Seen); Hyaline Casts Urine 0-2 /LPF (0-2); RBC Urine 0-2 /HPF (0-2); UACC Culture Trigger YES; WBC Urine >50 /HPF (0-5)
[2023-09-02 20:00] VITALS: BP 98/52; PULSE 79; RESP 20; TEMP 37.1; O2SAT 97
[2023-09-02 20:46] LABS: Glucose, Whole Blood 197 mg/dL (60-115)
[2023-09-02] MEDS: HYDROmorphone HCl 0.5 MG/0.5 ML SYRINGE 0.25 MG IVPUSH (21:02)
[2023-09-02] MEDS: Insulin Glargine,Hum.rec.anlog 100 UNIT/ML 10 ML VIAL 25 UNIT SUBCUT (21:04)
[2023-09-02] MEDS: Sodium Bicarbonate 650 MG TABLET PO (21:06)
--- NOTE | 2023-09-02 22:42 | PM.EVENT ---
Event Note Date of Service: 09/02/23 Event Note: 68 yr old woman with High AG metabolic acidosis/LActic acidosis due to metformin Mild SWETA Shock Suggest DC metformin IV hydration Follow bicarb Agree with PO bicarb at this time Optimize BP Full cinsult to follow Thank you Time Spent With Patient Time: Total time managing care of this patient today ____ minutes.
[2023-09-03 03:38] VITALS: BP 102/50; PULSE 75; RESP 20; TEMP 36.1; O2SAT 99
[2023-09-03] MEDS: Doxycycline Hyclate 100 MG in 0.9 % Sodium Chloride 250 ML 166.7 MG IV (03:57)
[2023-09-03] MEDS: HYDROmorphone HCl 0.5 MG/0.5 ML SYRINGE 0.25 MG IVPUSH ×3 (04:00→14:23)
[2023-09-03] MEDS: Miconazole 2 % Extra Thick Cr 56.7 Gm Tube 1 APPL TOPICAL ×3 (04:13→20:33)
[2023-09-03] MEDS: 0.9 % Sodium Chloride Flush 3 ML SYRINGE IVFLUSH ×4 (04:17→20:33)
[2023-09-03] MEDS: ondansetron HCL 4 MG/2 ML VIAL IVPUSH (04:36)
[2023-09-03] MEDS: oxyCODONE HCl Immed Release 5 MG TABLET PO ×3 (05:11→23:15)
[2023-09-03] MEDS: Acetaminophen 325 MG TABLET 650 MG PO ×3 (05:11→20:29)
[2023-09-03 06:00] VITALS: BMI 35.2
[2023-09-03 07:13] LABS: Glucose, Whole Blood 170 mg/dL (60-115)
[2023-09-03 07:14] VITALS: BP 104/57; PULSE 72; RESP 20; TEMP 36.4; O2SAT 97
[2023-09-03 07:16] LABS: MANUAL DIFF FLAG NO
[2023-09-03 07:31] LABS: Basophils Absolute Auto 0.1 X10*3/uL (0.0-0.2); Basophils Percent Auto 0.7 % (0-2); Eosinophils Absolute Auto 0.4 X10*3/uL (0.0-0.4); Eosinophils Percent Auto 5.4 % (0-4); Hematocrit 32.3 % (37.0-47.0); Hemoglobin 10.2 g/dl (12.0-16.0); Imm Gran Abs Auto 0.04 X10*3/uL (0.00-0.03); Imm Gran Pct Auto 0.5 % (0.0-0.4); Lymphocytes Absolute Auto 1.2 X10*3/uL (1.2-4.9); Lymphocytes Percent Auto 16.1 % (20-40); Mean Corpuscular HGB Conc 31.6 g/dl (31.0-35.0); Mean Corpuscular Hemoglobin 28.8 pg (27.0-33.0); Mean Corpuscular Volume 91.2 fL (80.0-98.0); Mean Platelet Volume 10.1 fL (9.4-12.3); Monocytes Absolute Auto 0.7 X10*3/uL (0.1-1.2); Monocytes Percent Auto 9.9 % (2-11); Neutrophils Percent Auto 67.4 % (45-73); Platelet Count 245 X10*3/uL (160-400); Red Blood Count 3.54 X10*6/uL (4.20-5.50); Red Cell Distribution Width 14.6 % (11.0-16.0); White Blood Count 7.4 X10*3/uL (4.8-10.8)
[2023-09-03 07:43] LABS: Anion Gap 19 (12-20); Blood Urea Nitrogen 16 mg/dL (9-16); Calcium 8.7 mg/dL (8.4-10.2); Carbon Dioxide 12 mmol/L (22-29); Chloride 106 mmol/L (96-108); Creatinine Clr Calc Pharmacy 69.2; Estimated Glomerular Filt Rate > 60; Glucose Random 188 mg/dL (60-115); Sodium 133 mmol/L (135-145)
--- NOTE | 2023-09-03 08:07 | PC.NURSE ---
pt with extensive red, painful moist rash under breasts L>R, under pannus, in groin and gluteal crease. Pt medicated as per mar with moderate success. Skin exquisitely painful to touch or movement of the skin. Area cleansed and fungal ointment applied. abd pads used to separate skin folds. Pt found some relief from ice packs. ABX as ordered. Pt educated on treatment plan, ongoing care and treatment of susceptible areas once healed, and pain management plan. plan of care ongoing.
[2023-09-03] MEDS: Insulin Lispro 100 UNIT/ML 3 ML VIAL SUBCUT ×4 (09:57→20:32)
[2023-09-03] MEDS: Sodium Bicarbonate 650 MG TABLET PO ×3 (09:58→20:32)
[2023-09-03] MEDS: Cholecalciferol (Vitamin D3) 25 MCG TABLET PO (09:58)
[2023-09-03] MEDS: Metoprolol Tartrate 25 MG TABLET PO (09:58)
[2023-09-03] MEDS: Lactated Ringers 1,000 ML 150 ML IVCONT (10:10)
[2023-09-03 10:26] VITALS: RESP 18
[2023-09-03 11:13] LABS: Glucose, Whole Blood 187 mg/dL (60-115)
--- NOTE | 2023-09-03 11:28 | HO.PM.IMPN ---
Subjective Subjective Date of Service: 09/04/23 Interval History: f/u on cutaneous candidiaisis with superimposed cellulitis Physical Exam Vital Signs: Vital Signs: Last Vital Signs Temp 97.6 F 09/03/23 07:14 Pulse 72 09/03/23 07:14 Resp 18 09/03/23 10:26 BP 104/57 L 09/03/23 07:14 Pulse Ox 97 09/03/23 07:14 O2 Del Method Room Air 09/03/23 07:14 O2 Flow Rate 97 09/02/23 12:21 BMI result Body Mass Index 35.2 Const: Other: General: AO X 3, no acute distress Resp: CTA bilateral CVS: S1,S2,RRR GI: +BS, NT, no distention Skin: see pics from h and p Neuro: motor grossly intact Psych: appropriate affect Objective Data Active Medications Acetaminophen (Acetaminophen 325 Mg Tablet) 650 mg PO Q6H PRN PRN Reason: Pain, Mild (Pain Scale 1-3) Last Admin: 09/03/23 05:11 Dose: 650 mg Documented By: HOME Atorvastatin Calcium (Atorvastatin Calcium 80 Mg Tablet) 80 mg PO DAILY [facility] Last Admin: 09/03/23 10:07 Dose: Not Given Documented By: ZANE Non-Admin Reason: pt states cannot take when getting Diflucan Dextrose (Dextrose 50 % 25 Gm/50 Ml Syringe) 25 gm IVPUSH Q15M PRN; Protocol PRN Reason: per Hypoglycemia Standing Ord. Enoxaparin Sodium (Enoxaparin Sodium 40 Mg/0.4 Ml Syringe) 40 mg SUBCUT Q24H [facility] Last Admin: 09/02/23 14:45 Dose: 40 mg Documented By: ZENA Fluconazole (Fluconazole 150 Mg Tablet) 150 mg PO Q7D [facility] Glucose (Glucose Gel 15 Gm Gel..Gram.) 15 gm PO Q15M PRN; Protocol PRN Reason: per Hypoglycemia Standing Ord. Hydromorphone HCl (Hydromorphone Hcl 0.5 Mg/0.5 Ml Syringe) 0.25 mg IVPUSH Q4H PRN; Protocol PRN Reason: Pain, Severe (Pain Scale 7-10) Last Admin: 09/03/23 09:56 Dose: 0.25 mg Documented By: ZANE Doxycycline Hyclate 100 mg/ (Sodium Chloride) 250 mls @ 166.67 mls/hr IV Q12H [facility] Last Infusion: 09/03/23 06:04 Dose: Infused Documented By: HOME Lactated Ringer's (Lr) 1,000 mls @ 150 mls/hr IVCONT .Q6H40M [facility] Stop: 09/03/23 16:09 Last Admin: 09/03/23 10:10 Dose: 150 mls/hr Documented By: ZANE Insulin Glargine (Insulin Glargine,Hum.Rec.Anlog 100 Unit/Ml 10 Ml Vial) 25 unit SUBCUT BEDTIME [facility] Last Admin: 09/02/23 21:04 Dose: 25 unit Documented By: HOME Insulin Human Lispro (Insulin Lispro 100 Unit/Ml 3 Ml Vial) 0 unit SUBCUT QIDACHS [facility]; Protocol Last Admin: 09/03/23 09:57 Dose: 2 unit Documented By: ZANE Metoprolol Tartrate (Metoprolol Tartrate 25 Mg Tablet) 25 mg PO BID [facility]; Protocol Last Admin: 09/03/23 09:58 Dose: 25 mg Documented By: ZANE Miconazole Nitrate (Miconazole 2 % Extra Thick Cr 56.7 Gm Tube) 1 appl TOPICAL BID [facility]; Protocol Last Admin: 09/03/23 10:10 Dose: 1 appl Documented By: ZANE Non-Formulary Medication (Ticagrelor [Brilinta]) 60 mg PO BID [facility] Ondansetron HCl (Ondansetron Hcl 4 Mg/2 Ml Vial) 4 mg IVPUSH Q8H PRN PRN Reason: Nausea and Vomiting Last Admin: 09/03/23 04:36 Dose: 4 mg Documented By: HOME Oxycodone HCl (Oxycodone Hcl Immed Release 5 Mg Tablet) 5 mg PO Q8H PRN PRN Reason: Pain, Moderate(Pain Scale 4-6) Last Admin: 09/03/23 05:11 Dose: 5 mg Documented By: HOME Senna (Sennosides 8.6 Mg Tablet) 17.2 mg PO BEDTIME PRN PRN Reason: Constipation Sodium Bicarbonate (Sodium Bicarbonate 650 Mg Tablet) 650 mg PO TID [facility] Last Admin: 09/03/23 09:58 Dose: 650 mg Documented By: ZANE Sodium Chloride (0.9 % Sodium Chloride Flush 3 Ml Syringe) 3 ml IVFLUSH QSHIFT [facility] Last Admin: 09/03/23 09:57 Dose: 3 ml Documented By: ZANE Vitamin D (Cholecalciferol (Vitamin D3) 25 Mcg Tablet) 25 mcg PO DAILY [facility] Last Admin: 09/03/23 09:58 Dose: 25 mcg Documented By: ZANE Labs 09/03/23 06:22 09/04/23 09:09 Labs: Laboratory Results - last 24 hr 09/02/23 09/02/23 09/02/23 09:41 15:40 17:21 MCV MCH MCHC RDW Plt Count MPV Immature Gran % (Auto) Neut % (Auto) Lymph % (Auto) [place] % (Auto) Eos % (Auto) Baso % (Auto) Lymph # (Auto) [place] # (Auto) Eos # (Auto) Baso # (Auto) Abs Immat Gran (auto) Absolute Neuts (auto) Absolute Nucleated RBC Nucleated RBC % (auto) VBG pH 7.27 L VBG pCO2 31 VBG pO2 29 VBG HCO3 14 L VBG O2 Saturation 42.0 VBG Base Excess -10.7 Anion Gap Estim Creat Clear Calc Estimated GFR POC Glucose 153 H Random Glucose Calcium Beta-Hydroxybutyrate 5.23 H Urine Color Urine Appearance Urine pH Ur Specific [place] Urine Protein Urine Glucose (UA) Urine Ketones Urine Blood Urine Nitrite Ur Leukocyte Esterase Urine RBC Urine WBC Ur Squamous Epith Cells Urine Bacteria Hyaline Casts 09/02/23 09/02/23 09/03/23 18:34 20:22 06:22 MCV 91.2 MCH 28.8 MCHC 31.6 RDW 14.6 Plt Count 245 MPV 10.1 Immature Gran % (Auto) 0.5 H Neut % (Auto) 67.4 Lymph % (Auto) 16.1 L [place] % (Auto) 9.9 Eos % (Auto) 5.4 H Baso % (Auto) 0.7 Lymph # (Auto) 1.2 [place] # (Auto) 0.7 Eos # (Auto) 0.4 Baso # (Auto) 0.1 Abs Immat Gran (auto) 0.04 H Absolute Neuts (auto) 5.0 Absolute Nucleated RBC 0.000 Nucleated RBC % (auto) 0.0 VBG pH VBG pCO2 VBG pO2 VBG HCO3 VBG O2 Saturation VBG Base Excess Anion Gap 19 Estim Creat Clear Calc 69.2 Estimated GFR > 60 POC Glucose 197 H Random Glucose 188 H Calcium 8.7 Beta-Hydroxybutyrate Urine Color Yellow Urine Appearance Clear Urine pH 5.5 Ur Specific [place] >= 1.030 H Urine Protein 30 (1+) H Urine Glucose (UA) >=1000 H Urine Ketones >=160 Urine Blood Trace H Urine Nitrite Negative Ur Leukocyte Esterase Moderate (2+) H Urine RBC 0-2 Urine WBC >50 H Ur Squamous Epith Cells 3-5 Urine Bacteria Trace Hyaline Casts 0-2 09/03/23 09/03/23 07:08 11:09 MCV MCH MCHC RDW Plt Count MPV Immature Gran % (Auto) Neut % (Auto) Lymph % (Auto) [place] % (Auto) Eos % (Auto) Baso % (Auto) Lymph # (Auto) [place] # (Auto) Eos # (Auto) Baso # (Auto) Abs Immat Gran (auto) Absolute Neuts (auto) Absolute Nucleated RBC Nucleated RBC % (auto) VBG pH VBG pCO2 VBG pO2 VBG HCO3 VBG O2 Saturation VBG Base Excess Anion Gap Estim Creat Clear Calc Estimated GFR POC Glucose 170 H 187 H Random Glucose Calcium Beta-Hydroxybutyrate Urine Color Urine Appearance Urine pH Ur Specific [place] Urine Protein Urine Glucose (UA) Urine Ketones Urine Blood Urine Nitrite Ur Leukocyte Esterase Urine RBC Urine WBC Ur Squamous Epith Cells Urine Bacteria Hyaline Casts Microbiology Microbiology Results: Microbiology 09/02/23 Unknown Urine Culture - Preliminary Urine clean catch - Urine choudhary top Culture too young to evaluate. Assessment and Plan (1) Intertrigo: Status: Acute (2) Cellulitis: Status: Acute Plan 68 year old female with history of Uncontrolled type 2 diabetes, hypertension, hyperlipidemia, history of pulmonary embolism completed course of apixaban, ischemic cardiomyopathy/hx NSTEMI with stents placed 07/10 on DAPT, HFpEF, hx uterine carcinosarcoma, who is obese with BMI >34 admitted for extensive intertiginous candidiasis with suspect superimposed cellulitis. #Acute on chronic intertriginuous candidiasis with suspected superimposed cellulitis Left breast -left breast, bilateral groin folds, gluteal cleft, and vuvlovaginal- appears worse compared to prior admission on review of photos in wound rn note -likely due to poorly controlled type 2 diabetes, obesity, and possibly complicated by jardiance use -IV doxycycline 100mg BID (115) -Diflucan 150mg weekly (09/02) -Topical miconazole after washing and thoroughly drying affected areas twice daily -recommend STOPPING jardiance on d/c -discussed the importance of better glucose control and weight loss to prevent fungal infections -wound consult -cultures pending #Acute on chronic non anion gap metabolic acidosis, -beta-hydroxybutryate 5.23, glucose levels fairly well controlled at this time -no cassie, no diarrhea -Give bicarb po tid -?RTN, nephrology consult -follow bmp, IVF and reassess #Uncontrolled insulin dependent type 2 diabetes -last Hgb A1c was 10.7% -Dose adjusted basal insulin -POC glucose, diabetic diet -humalog on ssi -hold metformin, glyburide. Recommend discontinuing jardiance given recurrent candidiasis #HTN -blood pressures soft -hold lisinopril, continue metoprolol #CAD/ischemic cardiomyopathy -continue brillinta, bb, statin #HFpEF -euvolemic on exam #Obesity with BMI >34 due to excess calories -weight loss efforts encouraged DVT prophylaxis- lovenox Full code need for inpt: IV Abx for cellulitis and work up and management of metabolic acidosis Quality Stroke Does the patient have a stroke diagnosis?: No VTE Prior VTE?: Yes VTE Risk Level:: Medical - moderate - high VTE Device Contraindication: Treatment Not Indicated VTE Drug Contraindication: N/A - Med Ordered
--- NOTE | 2023-09-03 11:47 | MHC.CM.PN ---
CM met with Patient at bedside and addressed IMM with her, providing Patient with the original and a copy has been placed on the chart. Patient lives in a condo with her /HCP/Lars and she uses a cane for outdoor travel only. Patient does not feel that she will need VNA; home/self care is her goal. CM has initiated and will follow for dc planning. PCP is Dr. Edward Gotti.
--- NOTE | 2023-09-03 12:37 | P.CONNP_ITS ---
History of Present Illness Reason for Consult Consult date: 09/03/23 Reason for consult: Acidosis Chief Complaint Chief complaint: extensive cellulitis superimposed on candidiasis History of Present Illness Narrative: 68 year old female with history of Uncontrolled type 2 diabetes, hypertension among multiple other medical issues who is obese with BMI >34 presented to the ED earlier today for evaluation of fungal infection of the breasts, groin, buttock. She was recent admitted to [facility] from 08/07- 08/10 for intertriginous candidiasis with superimposed cellulitis discharged on doxycycline, miconazole, and oral diflucan. She states she took meds as prescribed and pcp extended course of doxycycline x1 week which was completed 1 week ago. She states initially felt better, but 5 days ago rash again began to worsen and feels it is now worse than previously. Her has been assisting with application of topical antifungal. Admittedly, her diabetes is not well controlled. Hgb A1c during last admission was 10.7. Not always compliant with diabetic diet. She reports severe pain under the left breast with green purulent drainage, particularly when moving and has noted new rash in the buttock/vuvlovaginal area. She is also reporting several episodes of vomiting and nausea. No abd pain, diarrhea, or fevers. On arrival in the ER, VSS. No leukocytosis. Renal function and lytes normal, except for CO2 13. In the ED, given IV zosyn, 1 L IVNS, dilaudid, 150mg diflucan.She was admitted for further management. Nephrology has been consulted to assist in her clinical care during her current hospital stay [facility] Past Medical History Medical History Uterine carcinosarcoma GERD (gastroesophageal reflux disease) CAD (coronary artery disease) NSTEMI (non-ST elevated myocardial infarction) Ischemic cardiomyopathy HLD (hyperlipidemia) Type 2 diabetes mellitus SWETA (acute kidney injury) HTN (hypertension) Surgical History Surgical History History of left knee replacement Hx of heart artery stent Social History Social History Household Members: Spouse Housing: Condominium Do you presently have visiting nurse or other home services: Yes Comment: ambulates with walker Patient Tobacco Use Status: Never used Tobacco service: No Meds Allergies Allergy/AdvReac Type Severity Reaction Status Date / Time amoxicillin AdvReac Headache Verified 08/07/23 11:11 Active Medications: Current Medications Acetaminophen (Acetaminophen 325 Mg Tablet) 650 mg PO Q6H PRN PRN Reason: Pain, Mild (Pain Scale 1-3) Last Admin: 09/03/23 12:00 Dose: 650 mg Atorvastatin Calcium (Atorvastatin Calcium 80 Mg Tablet) 80 mg PO DAILY [facility] Last Admin: 09/03/23 10:07 Dose: Not Given Dextrose (Dextrose 50 % 25 Gm/50 Ml Syringe) 25 gm IVPUSH Q15M PRN; Protocol PRN Reason: per Hypoglycemia Standing Ord. Enoxaparin Sodium (Enoxaparin Sodium 40 Mg/0.4 Ml Syringe) 40 mg SUBCUT Q24H [facility] Last Admin: 09/02/23 14:45 Dose: 40 mg Fluconazole (Fluconazole 150 Mg Tablet) 150 mg PO Q7D [facility] Glucose (Glucose Gel 15 Gm Gel..Gram.) 15 gm PO Q15M PRN; Protocol PRN Reason: per Hypoglycemia Standing Ord. Hydromorphone HCl (Hydromorphone Hcl 0.5 Mg/0.5 Ml Syringe) 0.25 mg IVPUSH Q4H PRN; Protocol PRN Reason: Pain, Severe (Pain Scale 7-10) Last Admin: 09/03/23 09:56 Dose: 0.25 mg Doxycycline Hyclate 100 mg/ (Sodium Chloride) 250 mls @ 166.67 mls/hr IV Q12H [facility] Last Infusion: 09/03/23 06:04 Dose: Infused Lactated Ringer's (Lr) 1,000 mls @ 150 mls/hr IVCONT .Q6H40M [facility] Stop: 09/03/23 16:09 Last Admin: 09/03/23 10:10 Dose: 150 mls/hr Insulin Glargine (Insulin Glargine,Hum.Rec.Anlog 100 Unit/Ml 10 Ml Vial) 25 unit SUBCUT BEDTIME [facility] Last Admin: 09/02/23 21:04 Dose: 25 unit Insulin Human Lispro (Insulin Lispro 100 Unit/Ml 3 Ml Vial) 0 unit SUBCUT QIDACHS [facility]; Protocol Last Admin: 09/03/23 11:58 Dose: 2 unit Metoprolol Tartrate (Metoprolol Tartrate 25 Mg Tablet) 25 mg PO BID [facility]; Protocol Last Admin: 09/03/23 09:58 Dose: 25 mg Miconazole Nitrate (Miconazole 2 % Extra Thick Cr 56.7 Gm Tube) 1 appl TOPICAL BID [facility]; Protocol Last Admin: 09/03/23 10:10 Dose: 1 appl Non-Formulary Medication (Ticagrelor [Brilinta]) 60 mg PO BID [facility] Ondansetron HCl (Ondansetron Hcl 4 Mg/2 Ml Vial) 4 mg IVPUSH Q8H PRN PRN Reason: Nausea and Vomiting Last Admin: 09/03/23 04:36 Dose: 4 mg Oxycodone HCl (Oxycodone Hcl Immed Release 5 Mg Tablet) 5 mg PO Q8H PRN PRN Reason: Pain, Moderate(Pain Scale 4-6) Last Admin: 09/03/23 05:11 Dose: 5 mg Senna (Sennosides 8.6 Mg Tablet) 17.2 mg PO BEDTIME PRN PRN Reason: Constipation Sodium Bicarbonate (Sodium Bicarbonate 650 Mg Tablet) 650 mg PO TID [facility] Last Admin: 09/03/23 09:58 Dose: 650 mg Sodium Chloride (0.9 % Sodium Chloride Flush 3 Ml Syringe) [address] [facility] Last Admin: 09/03/23 09:57 Dose: 3 ml Vitamin D (Cholecalciferol (Vitamin D3) 25 Mcg Tablet) 25 mcg PO DAILY [facility] Last Admin: 09/03/23 09:58 Dose: 25 mcg Home Medications Medication Instructions Recorded Confirmed Last Taken Type alendronate 70 mg tablet 70 mg PO TOM 08/07/23 09/02/23 08/25/23 History aspirin 81 mg tablet,delayed 81 mg PO DAILY 08/07/23 09/02/23 Unknown History release atorvastatin 80 mg tablet 80 mg PO DAILY 08/07/23 09/02/23 Unknown History empagliflozin 10 mg tablet 10 mg PO DAILY 08/07/23 09/02/23 Unknown History (Jardiance) glyburide 5 mg tablet 10 mg PO BID 08/07/23 09/02/23 Unknown History insulin aspart U-100 100 unit/mL 13 unit subcut TIDWM 08/07/23 09/02/23 Unknown History (3 mL) subcutaneous pen (Novolog FlexPen U-100 Insulin aspart) insulin glargine 100 unit/mL (3 28 - 32 unit subcut QPM 08/07/23 09/02/23 Unknown History mL) subcutaneous pen (Basaglar DinhPen U-100 Insulin) lisinopril 5 mg tablet 5 mg PO DAILY 08/07/23 09/02/23 Unknown History metformin 500 mg tablet,extended 500 mg PO BID 08/07/23 09/02/23 Unknown History release 24 hr metoprolol tartrate 25 mg tablet 25 mg PO BID 08/07/23 09/02/23 Unknown History oxycodone-acetaminophen 5 mg-325 1 tab PO Q8H PRN pain 08/07/23 09/02/23 Unknown History mg tablet ticagrelor 60 mg tablet (Brilinta) 60 mg PO BID 08/07/23 09/02/23 Unknown History cholecalciferol (vitamin D3) 25 25 mcg PO DAILY 09/02/23 09/02/23 Unknown History mcg (1,000 unit) tablet Physical Exam Vital Signs: Last Vital Signs Temp 97.6 F 09/03/23 07:14 Pulse 72 09/03/23 07:14 Resp 18 09/03/23 10:26 BP 104/57 L 09/03/23 07:14 Pulse Ox 97 09/03/23 07:14 O2 Del Method Room Air 09/03/23 07:14 O2 Flow Rate 97 09/02/23 12:21 BMI result Body Mass Index 35.2 Const General: comfortable and no acute distress Orientation/consciousness: patient oriented x3 HEENT Head: Yes normocephalic Mouth: Normal oral and palatal mucosa present Eyes EOM: EOMs intact bilaterally Neck Neck: Yes supple Resp Auscultation: clear to auscultation bilaterally Cardio Jugular venous distension: no JVD Rate: regular rate GI Palpation (GI): Soft to palpation Auscultation: normal bowel sounds General: Yes no CVA tenderness Back/Spine/Pelvis Back: no CVA tenderness Neuro General: patient oriented x3 and moves all extremities Extrem General: Yes no pedal edema Results Lab Results 09/03/23 06:22 09/03/23 06:22 Lab results: Chemistry 09/02/23 09/03/23 09:41 06:22 Sodium 136 133 L Potassium 4.3 4.0 Carbon Dioxide 13 L 12 L BUN 17 H 16 Creatinine 1.15 0.86 Calcium 8.8 8.7 Hematology 09/02/23 09/03/23 09:41 06:22 WBC 6.6 7.4 Hgb 11.2 L 10.2 L Plt Count 227 245 Urinalysis 09/02/23 18:34 Urine Color Yellow Urine Appearance Clear Urine pH 5.5 Ur Specific [place] >= 1.030 H Urine Protein 30 (1+) H Urine Glucose (UA) >=1000 H Urine Ketones >=160 Urine Blood Trace H Urine Nitrite Negative Ur Leukocyte Esterase Moderate (2+) H Urine RBC 0-2 Urine WBC >50 H Ur Squamous Epith Cells 3-5 Hyaline Casts 0-2 Assessment and Plan (1) Metabolic acidosis: Status: Acute Plan Renal functions are stable She is off metformin; Her beta hydroxybutyrate level is high Lactate levels are normal. Liver functions are normal VBG showed pCO2 of 31. She has been started on Ringer lactate She had been getting bicarbonate. Shall follow lab work Discussed with medical attending. Procedures Date of Service Date of Service: 09/03/23
[2023-09-03] MEDS: Enoxaparin Sodium 40 MG/0.4 ML SYRINGE SUBCUT (14:25)
[2023-09-03] MEDS: Doxycycline Hyclate 100 MG in 0.9 % Sodium Chloride 250 ML 166.67 MG IV (14:37)
[2023-09-03 15:14] LABS: Anion Gap 16 (12-20); Blood Urea Nitrogen 16 mg/dL (9-16); Calcium 9.1 mg/dL (8.4-10.2); Carbon Dioxide 18 mmol/L (22-29); Chloride 104 mmol/L (96-108); Creatinine Clr Calc Pharmacy 61.3; Estimated Glomerular Filt Rate 57; Glucose Random 232 mg/dL (60-115); Potassium 4.5 mmol/L (3.3-5.1); Sodium 133 mmol/L (135-145)
[2023-09-03 15:17] VITALS: BP 116/61; PULSE 74; RESP 18; TEMP 36.4; O2SAT 97
[2023-09-03 16:32] LABS: Glucose, Whole Blood 189 mg/dL (60-115)
--- NOTE | 2023-09-03 17:55 | HO.WOUND ---
Wound Consult: Initial 68yr old female admitted to [facility] on?09/02/23 14:21 See progress notes and H&P for detailed history. Recent admission in July 2023 with similar fungal dermatitis noted - see chart review for details. See photo review - some improvement noted - but would have expected more clinical clearing if she was using cream as often as reported. Provider to consider skin scraping or swab for etiology - rule out Nancy Auris. Wound consult placed for Fungal Dermatitis to bilateral breast and groin and intergluteal area. Bilateral Groin and Bilateral Breast Folds - Fungal Dermatitis - Red erythema with in skin fold advancing satellite lesions notes advancing outside of skin fold. The areas are currently treated with a cream based antifungal given her reported tenderness and open tissue. When present in intertriginous areas cream can work best for comfort the powder tends to lead to more friction causing more pain. At the time of my assessment the patient reports her story from discharge she reports there was improvement she followed with her PCP who extended her oral antibiotic for additional time and then approximately 4 days ago she noticed a significant worsening of the topical rash. She reports her blood glucose were not tightly controlled while at home. She denies incontinence and reports cleansing and using creams as prescribed twice daily. Intergluteal areas assessed for mirrored red blanchable erythema no satellite lesions noted - No pressure injury noted. Antifungal cream such as Miconazole 2% cream can treat the fungal infection in addition have a soothing effect to the topical irritation. Miconazole can be very effective at treating topical stubborn fungal dermatitis when nystatin has proven ineffective. Miconazole 2% cream / ointments can be used in the breast and perineal areas. last admission assessment 08/08/23 last admission assessment 08/08/23 Todays Assessment 09/03/23 last admission assessment 08/08/23 Todays Assessment 09/03/23 Todays Assessment 09/03/23 Recommendations: 1. Maintain blood glucose levels per Providers orders. - Patient was educated poor diabetic control can lead to frequent fungal invasions and she will benefit from better control of her diabetes. 2. Bilateral Breast and Groin - Gently cleanse with Ph wipe, allow to dry - keep skin fold open to air to allow for tissue to completely dry. Then apply Antifungal cream - Miconazole 2% twice daily. ?Apply for 10-14 days past point of clinical clearing. Once fungal dermatits has cleared consider use of Interdry Sheets to aid in translocating moisture. 3. Intergluteal - Gently cleanse with Ph wipe, allow to dry - keep skin fold open to air to allow for tissue to completely dry. Then apply Antifungal cream - Miconazole 2% twice daily. Re-consult wound care Nurse for wound deterioration or wound changes.
[2023-09-03 19:26] VITALS: BP 98/57; PULSE 77; RESP 18; TEMP 36.4; O2SAT 97
[2023-09-03 20:28] LABS: Glucose, Whole Blood 216 mg/dL (60-115)
[2023-09-03] MEDS: HYDROmorphone HCl 0.5 MG/0.5 ML SYRINGE IVPUSH (20:29)
[2023-09-03] MEDS: Insulin Glargine,Hum.rec.anlog 100 UNIT/ML 10 ML VIAL 25 UNIT SUBCUT (20:30)
[2023-09-04] MEDS: HYDROmorphone HCl 0.5 MG/0.5 ML SYRINGE 0.25 MG IVPUSH ×2 (01:18→14:56)
[2023-09-04] MEDS: Doxycycline Hyclate 100 MG in 0.9 % Sodium Chloride 250 ML 166.67 MG IV (03:12)
[2023-09-04] MEDS: Acetaminophen 325 MG TABLET 650 MG PO ×2 (03:17→18:35)
[2023-09-04 03:47] VITALS: BP 112/55; PULSE 71; RESP 16; TEMP 36; O2SAT 97
[2023-09-04 07:14] VITALS: BP 140/61; PULSE 84; RESP 20; TEMP 36.2; O2SAT 98
[2023-09-04 07:34] LABS: Glucose, Whole Blood 158 mg/dL (60-115)
[2023-09-04] MEDS: Insulin Lispro 100 UNIT/ML 3 ML VIAL SUBCUT ×4 (08:05→20:27)
[2023-09-04] MEDS: Cholecalciferol (Vitamin D3) 25 MCG TABLET PO (08:06)
[2023-09-04] MEDS: oxyCODONE HCl Immed Release 5 MG TABLET PO ×2 (08:06→18:36)
[2023-09-04] MEDS: Metoprolol Tartrate 25 MG TABLET PO ×2 (08:07→20:28)
[2023-09-04] MEDS: Sodium Bicarbonate 650 MG TABLET PO ×3 (08:07→20:29)
[2023-09-04] MEDS: 0.9 % Sodium Chloride Flush 3 ML SYRINGE IVFLUSH ×2 (08:07→20:29)
[2023-09-04] MEDS: Miconazole 2 % Extra Thick Cr 56.7 Gm Tube 1 APPL TOPICAL ×2 (08:07→20:30)
--- NOTE | 2023-09-04 09:03 | HO.WOUND ---
Addendum entered by Sarah Guillaume RN 09/04/23 14:07: Follow up at 12 noon - Patient was showered with assistance from direct care team. Photos below are post shower. Pt states she feels better after shower - reeducated on the things she can do to aid in resolving this fungal rash. Shower Daily - keep skin dry and clean. Apply topical treatments twice daily or as ordered continue for 10-14 days past rash clearing. Tight control of blood sugars - Pt educated that high sugars increase the chance and worsening of fungal dermatitis. Providers to consider systemic antifungal and ID Consultation. Wound care will continue to follow. Left Breast Right Breast Groin and Perineal Right Groin Intergluteal Topical Wound Care Recommendations 1. Maintain blood glucose levels per Providers orders. - Patient was educated poor diabetic control can lead to frequent fungal invasions and she will benefit from better control of her diabetes. 2. Bilateral Breast and Groin - Encourage patient to shower at least mihaela if not twice a day. Gently cleanse with Ph balanced soap and water, allow to dry - keep skin fold open to air to allow for tissue to completely dry. Then apply Antifungal cream - Miconazole 2% twice daily. ?Apply for 10-14 days past point of clinical clearing. Once fungal dermatitis has cleared consider use of Interdry Sheets to aid in translocating moisture. 3. Intergluteal - Recommend daily showers - Gently cleanse with Ph wipe, allow to dry - keep skin fold open to air to allow for tissue to completely dry. Then apply Antifungal cream - Miconazole 2% twice daily. Original Note: Wound Consult: Follow up last assessment 09/03/23 68yr old female admitted to [facility] [place] on?09/02/23 14:21 See progress notes and H&P for detailed history. Recent admission in July 2023 with similar fungal dermatitis noted - see chart review for details. See photo review - some improvement noted - but would have expected more clinical clearing if she was using cream as often as reported. Provider to consider skin scraping or swab for etiology - rule out Nancy Auris. Discussed with Dr. Mckee to consider ID consult to rule out resistant C. Auris or different topical treatment options. Wound consult placed for Fungal Dermatitis to bilateral breast and groin and intergluteal area. Bilateral Groin and Bilateral Breast Folds - Fungal Dermatitis - Red erythema with in skin fold advancing satellite lesions notes advancing outside of skin fold. The areas are currently treated with a cream based antifungal given her reported tenderness and open tissue. When present in intertriginous areas cream can work best for comfort the powder tends to lead to more friction causing more pain. At the time of my assessment the patient reports her story from discharge she reports there was improvement she followed with her PCP who extended her oral antibiotic for additional time and then approximately 4 days ago she noticed a significant worsening of the topical rash. She reports her blood glucose were not tightly controlled while at home. She denies incontinence and reports cleansing and using creams as prescribed twice daily. Intergluteal areas assessed for mirrored red blanchable erythema no satellite lesions noted - No pressure injury noted. Antifungal cream such as Miconazole 2% cream with Zinc can treat the fungal infection in addition have a soothing effect to the topical irritation. Miconazole can be very effective at treating topical stubborn fungal dermatitis when nystatin has proven ineffective. Miconazole 2% cream / ointments can be used in the breast and perineal areas. Recommendations: 1. Maintain blood glucose levels per Providers orders. - Patient was educated poor diabetic control can lead to frequent fungal invasions and she will benefit from better control of her diabetes. 2. Bilateral Breast and Groin - Encourage patint to shower atelast daily. Gently cleanse with Ph balanced soap and water, allow to dry - keep skin fold open to air to allow for tissue to completely dry. Then apply Antifungal cream - Miconazole 2% twice daily. ?Apply for 10-14 days past point of clinical clearing. Once fungal dermatits has cleared consider use of Interdry Sheets to aid in translocating moisture. 3. Intergluteal - Gently cleanse with Ph wipe, allow to dry - keep skin fold open to air to allow for tissue to completely dry. Then apply Antifungal cream - Miconazole 2% twice daily. Re-consult wound care Nurse for wound deterioration or wound changes.
--- NOTE | 2023-09-04 09:06 | MHC.CM.PN ---
CM met with pt. to discuss home care services. Pt said that her can help her with showering, but that she would like to have a nurse check on her when she is at home. She has used [facility] services in the past. CM will place referral, and follow to assist further with DC planning.
[2023-09-04 09:57] LABS: Anion Gap 14 (12-20); Blood Urea Nitrogen 12 mg/dL (9-16); Calcium 9.2 mg/dL (8.4-10.2); Carbon Dioxide 18 mmol/L (22-29); Chloride 107 mmol/L (96-108); Creatinine Clr Calc Pharmacy 77.3; Estimated Glomerular Filt Rate > 60; Glucose Random 142 mg/dL (60-115); Potassium 3.8 mmol/L (3.3-5.1); Sodium 135 mmol/L (135-145)
--- NOTE | 2023-09-04 11:23 | MHC.CLN ---
NUTRITION PATIENT WITH HX POORLY CONTROLLED DM. INTAKE 50-100%. POC GLUCOSE 153-216, HIGH. JULY A1C>10. DOES NOT CONSISTENTLY FOLLOW DM DIET AT HOME. RD RECOMMENDS DECREASE OF DIETARY KCALS TO DM 1800 KCALS.
[2023-09-04 11:33] LABS: Glucose, Whole Blood 216 mg/dL (60-115)
[2023-09-04] MEDS: HYDROmorphone HCl 0.5 MG/0.5 ML SYRINGE IVPUSH ×2 (11:59→20:29)
--- NOTE | 2023-09-04 12:26 | P.PNIM_ITS ---
Subjective Subjective Date of Service: 09/04/23 Interval History: f/u on skin fungal infection about same Physical Exam 2 Vital Signs: Vital Signs: Last Vital Signs Temp 97.2 F 09/04/23 07:14 Pulse 84 09/04/23 07:14 Resp 20 09/04/23 07:14 BP 140/61 H 09/04/23 07:14 Pulse Ox 98 09/04/23 07:14 O2 Del Method Room Air 09/04/23 07:14 O2 Flow Rate 97 09/02/23 12:21 BMI result Body Mass Index 35.2 Const: Other: General: AO X 3, no acute distress Resp: CTA bilateral CVS: S1,S2,RRR GI: +BS, NT, no distention Skin: see pics from h and p Neuro: motor grossly intact Psych: appropriate affect Objective Data Active Medications Acetaminophen (Acetaminophen 325 Mg Tablet) 650 mg PO Q6H PRN PRN Reason: Pain, Mild (Pain Scale 1-3) Last Admin: 09/04/23 03:17 Dose: 650 mg Documented By: GRACIELA Atorvastatin Calcium (Atorvastatin Calcium 80 Mg Tablet) 80 mg PO DAILY [facility] Last Admin: 09/04/23 08:17 Dose: Not Given Documented By: JORGE Non-Admin Reason: Patient Refused Dextrose (Dextrose 50 % 25 Gm/50 Ml Syringe) 25 gm IVPUSH Q15M PRN; Protocol PRN Reason: per Hypoglycemia Standing Ord. Enoxaparin Sodium (Enoxaparin Sodium 40 Mg/0.4 Ml Syringe) 40 mg SUBCUT Q24H [facility] Last Admin: 09/03/23 14:25 Dose: 40 mg Documented By: LUÍS Fluconazole (Fluconazole 150 Mg Tablet) 150 mg PO Q7D [facility] Glucose (Glucose Gel 15 Gm Gel..Gram.) 15 gm PO Q15M PRN; Protocol PRN Reason: per Hypoglycemia Standing Ord. Hydromorphone HCl (Hydromorphone Hcl 0.5 Mg/0.5 Ml Syringe) 0.5 mg IVPUSH Q12H PRN; Protocol PRN Reason: Dressing change Last Admin: 09/04/23 11:59 Dose: 0.5 mg Documented By: JORGE Hydromorphone HCl (Hydromorphone Hcl 0.5 Mg/0.5 Ml Syringe) 0.25 mg IVPUSH Q4H PRN; Protocol PRN Reason: Pain, Severe (Pain Scale 7-10) Fluconazole (Diflucan) 200 mg in 100 mls @ 100 mls/hr IV Q24H [facility] Insulin Glargine (Insulin Glargine,Hum.Rec.Anlog 100 Unit/Ml 10 Ml Vial) 25 unit SUBCUT BEDTIME [facility] Last Admin: 09/03/23 20:30 Dose: 25 unit Documented By: PADMAJA Insulin Human Lispro (Insulin Lispro 100 Unit/Ml 3 Ml Vial) 0 unit SUBCUT QIDACHS [facility]; Protocol Last Admin: 09/04/23 11:59 Dose: 4 unit Documented By: JORGE Metoprolol Tartrate (Metoprolol Tartrate 25 Mg Tablet) 25 mg PO BID [facility]; Protocol Last Admin: 09/04/23 08:07 Dose: 25 mg Documented By: JORGE Miconazole Nitrate (Miconazole 2 % Extra Thick Cr 56.7 Gm Tube) 1 appl TOPICAL BID [facility]; Protocol Last Admin: 09/04/23 08:07 Dose: 1 appl Documented By: JORGE Non-Formulary Medication (Ticagrelor [Brilinta]) 60 mg PO BID [facility] Ondansetron HCl (Ondansetron Hcl 4 Mg/2 Ml Vial) 4 mg IVPUSH Q8H PRN PRN Reason: Nausea and Vomiting Last Admin: 09/03/23 04:36 Dose: 4 mg Documented By: HOME Oxycodone HCl (Oxycodone Hcl Immed Release 5 Mg Tablet) 5 mg PO Q8H PRN PRN Reason: Pain, Moderate(Pain Scale 4-6) Last Admin: 09/04/23 08:06 Dose: 5 mg Documented By: JORGE Senna (Sennosides 8.6 Mg Tablet) 17.2 mg PO BEDTIME PRN PRN Reason: Constipation Sodium Bicarbonate (Sodium Bicarbonate 650 Mg Tablet) 650 mg PO TID [facility] Last Admin: 09/04/23 08:07 Dose: 650 mg Documented By: JORGE Sodium Chloride (0.9 % Sodium Chloride Flush 3 Ml Syringe) 3 ml IVFLUSH QSHIFT [facility] Last Admin: 09/04/23 08:07 Dose: 3 ml Documented By: JORGE Vitamin D (Cholecalciferol (Vitamin D3) 25 Mcg Tablet) 25 mcg PO DAILY [facility] Last Admin: 09/04/23 08:06 Dose: 25 mcg Documented By: JORGE Labs 09/03/23 06:22 09/04/23 09:09 Labs: Laboratory Results - last 24 hr 09/03/23 09/03/23 09/03/23 14:42 16:02 20:21 Hold Purple Top Anion Gap 16 Estim Creat Clear Calc 61.3 Estimated GFR 57 POC Glucose 189 H 216 H Random Glucose 232 H Calcium 9.1 09/04/23 09/04/23 09/04/23 07:19 09:09 11:29 Hold Purple Top SEE NOTE Anion Gap 14 Estim Creat Clear Calc 77.3 Estimated GFR > 60 POC Glucose 158 H 216 H Random Glucose 142 H Calcium 9.2 Microbiology Microbiology Results: Microbiology 09/02/23 09:41 Blood Culture - Preliminary Blood - Venous No growth after 48 hours. 09/02/23 Unknown Urine Culture - Final Urine clean catch - Urine choudhary top 09/02/23 09:57 Blood Culture - Preliminary Blood - Venous No growth after 24 hours. Assessment and Plan (1) Intertrigo: Status: Acute (2) Cellulitis: Status: Acute Plan 68 year old female with history of Uncontrolled type 2 diabetes, hypertension, hyperlipidemia, history of pulmonary embolism completed course of apixaban, ischemic cardiomyopathy/hx NSTEMI with stents placed 07/10 on DAPT, HFpEF, hx uterine carcinosarcoma, who is obese with BMI >34 admitted for extensive intertiginous candidiasis with suspect superimposed cellulitis. #Acute on chronic intertriginuous candidiasis with suspected superimposed cellulitis Left breast -stop doxy -add systemic difflucan -local care per wound nurse recommendation -id consult #Acute on chronic non anion gap metabolic acidosis, -beta-hydroxybutryate 5.23, glucose levels fairly well controlled at this time -no cassie, no diarrhea -Give bicarb po tid -?RTN, nephrology consult -improved #Uncontrolled insulin dependent type 2 diabetes -last Hgb A1c was 10.7% -continue Lantus -humalog on ssi -restart glyburide 5 bid -hold metformin, and jardiance given recurrent candidiasis #HTN--continue metoprolol #CAD/ischemic cardiomyopathy -continue brillinta, bb, statin #HFpEF -euvolemic on exam #Obesity with BMI >34 due to excess calories -weight loss efforts encouraged DVT prophylaxis- lovenox Full code need for inpt: IV Abx for cellulitis and work up and management of metabolic acidosis Quality Stroke Does the patient have a stroke diagnosis?: No VTE Prior VTE?: Yes VTE Risk Level:: Medical - moderate - high VTE Device Contraindication: Treatment Not Indicated VTE Drug Contraindication: N/A - Med Ordered
--- NOTE | 2023-09-04 14:41 | P.CNID_ITS ---
History of Present Illness Data of Consult Service Date: 09/04/23 Requesting physician: Bear Mckee Primary Care Provider: ARSH Delacruz HPI Reason for consult: rash under left breast and groin area She presents with discomfort under left breast area and groin area. She was admitted for fungal infection evaluate for bacterial infection and given Doxycycline and Diflucan in July She was admitted 08/07 and discharged 08/10. She says area is worse and reports taking Diflucan 150 mg po weekly. Review of Systems 2 Review of Systems: Yes all other systems are reviewed and are negative [facility] Past Medical History Medical History Uterine carcinosarcoma GERD (gastroesophageal reflux disease) CAD (coronary artery disease) NSTEMI (non-ST elevated myocardial infarction) Ischemic cardiomyopathy HLD (hyperlipidemia) Type 2 diabetes mellitus SWETA (acute kidney injury) HTN (hypertension) Family History Family history: reviewed and not pertinent Surgical History Surgical History History of left knee replacement Hx of heart artery stent Social History Social History Household Members: Spouse Housing: Condominium Do you presently have visiting nurse or other home services: Yes Comment: ambulates with walker Patient Tobacco Use Status: Never used Tobacco service: No Meds Allergies Allergy/AdvReac Type Severity Reaction Status Date / Time amoxicillin AdvReac Headache Verified 08/07/23 11:11 Active Medications: Current Medications Acetaminophen (Acetaminophen 325 Mg Tablet) 650 mg PO Q6H PRN PRN Reason: Pain, Mild (Pain Scale 1-3) Last Admin: 09/04/23 03:17 Dose: 650 mg Atorvastatin Calcium (Atorvastatin Calcium 80 Mg Tablet) 80 mg PO DAILY [facility] Last Admin: 09/04/23 08:17 Dose: Not Given Dextrose (Dextrose 50 % 25 Gm/50 Ml Syringe) 25 gm IVPUSH Q15M PRN; Protocol PRN Reason: per Hypoglycemia Standing Ord. Enoxaparin Sodium (Enoxaparin Sodium 40 Mg/0.4 Ml Syringe) 40 mg SUBCUT Q24H [facility] Last Admin: 09/03/23 14:25 Dose: 40 mg Glucose (Glucose Gel 15 Gm Gel..Gram.) 15 gm PO Q15M PRN; Protocol PRN Reason: per Hypoglycemia Standing Ord. Glyburide (Glyburide 5 Mg Tablet) 5 mg PO BIDWM [facility] Hydromorphone HCl (Hydromorphone Hcl 0.5 Mg/0.5 Ml Syringe) 0.5 mg IVPUSH Q12H PRN; Protocol PRN Reason: Dressing change Last Admin: 09/04/23 11:59 Dose: 0.5 mg Hydromorphone HCl (Hydromorphone Hcl 0.5 Mg/0.5 Ml Syringe) 0.25 mg IVPUSH Q4H PRN; Protocol PRN Reason: Pain, Severe (Pain Scale 7-10) Fluconazole (Diflucan) 200 mg in 100 mls @ 100 mls/hr IV Q24H [facility] Insulin Glargine (Insulin Glargine,Hum.Rec.Anlog 100 Unit/Ml 10 Ml Vial) 25 unit SUBCUT BEDTIME [facility] Last Admin: 09/03/23 20:30 Dose: 25 unit Insulin Human Lispro (Insulin Lispro 100 Unit/Ml 3 Ml Vial) 0 unit SUBCUT QIDACHS [facility]; Protocol Last Admin: 09/04/23 11:59 Dose: 4 unit Metoprolol Tartrate (Metoprolol Tartrate 25 Mg Tablet) 25 mg PO BID [facility]; Protocol Last Admin: 09/04/23 08:07 Dose: 25 mg Miconazole Nitrate (Miconazole 2 % Extra Thick Cr 56.7 Gm Tube) 1 appl TOPICAL BID [facility]; Protocol Last Admin: 09/04/23 08:07 Dose: 1 appl Non-Formulary Medication (Ticagrelor [Brilinta]) 60 mg PO BID [facility] Ondansetron HCl (Ondansetron Hcl 4 Mg/2 Ml Vial) 4 mg IVPUSH Q8H PRN PRN Reason: Nausea and Vomiting Last Admin: 09/03/23 04:36 Dose: 4 mg Oxycodone HCl (Oxycodone Hcl Immed Release 5 Mg Tablet) 5 mg PO Q8H PRN PRN Reason: Pain, Moderate(Pain Scale 4-6) Last Admin: 09/04/23 08:06 Dose: 5 mg Senna (Sennosides 8.6 Mg Tablet) 17.2 mg PO BEDTIME PRN PRN Reason: Constipation Sodium Bicarbonate (Sodium Bicarbonate 650 Mg Tablet) 650 mg PO TID [facility] Last Admin: 09/04/23 08:07 Dose: 650 mg Sodium Chloride (0.9 % Sodium Chloride Flush 3 Ml Syringe) 3 ml IVFLUSH QSHIFT [facility] Last Admin: 09/04/23 08:07 Dose: 3 ml Vitamin D (Cholecalciferol (Vitamin D3) 25 Mcg Tablet) 25 mcg PO DAILY [facility] Last Admin: 09/04/23 08:06 Dose: 25 mcg Home Medications Medication Instructions Recorded Confirmed Last Taken Type alendronate 70 mg tablet 70 mg PO TOM 08/07/23 09/02/23 08/25/23 History aspirin 81 mg tablet,delayed 81 mg PO DAILY 08/07/23 09/02/23 Unknown History release atorvastatin 80 mg tablet 80 mg PO DAILY 08/07/23 09/02/23 Unknown History empagliflozin 10 mg tablet 10 mg PO DAILY 08/07/23 09/02/23 Unknown History (Jardiance) glyburide 5 mg tablet 10 mg PO BID 08/07/23 09/02/23 Unknown History insulin aspart U-100 100 unit/mL 13 unit subcut TIDWM 08/07/23 09/02/23 Unknown History (3 mL) subcutaneous pen (Novolog FlexPen U-100 Insulin aspart) insulin glargine 100 unit/mL (3 28 - 32 unit subcut QPM 08/07/23 09/02/23 Unknown History mL) subcutaneous pen (Basaglar KwikPen U-100 Insulin) lisinopril 5 mg tablet 5 mg PO DAILY 08/07/23 09/02/23 Unknown History metformin 500 mg tablet,extended 500 mg PO BID 08/07/23 09/02/23 Unknown History release 24 hr metoprolol tartrate 25 mg tablet 25 mg PO BID 08/07/23 09/02/23 Unknown History oxycodone-acetaminophen 5 mg-325 1 tab PO Q8H PRN pain 08/07/23 09/02/23 Unknown History mg tablet ticagrelor 60 mg tablet (Brilinta) 60 mg PO BID 08/07/23 09/02/23 Unknown History cholecalciferol (vitamin D3) 25 25 mcg PO DAILY 09/02/23 09/02/23 Unknown History mcg (1,000 unit) tablet Physical Exam 2 Vital Signs: Vital Signs: Last Vital Signs Temp 97.2 F 09/04/23 07:14 Pulse 84 09/04/23 07:14 Resp 20 09/04/23 07:14 BP 140/61 H 09/04/23 07:14 Pulse Ox 98 09/04/23 07:14 O2 Del Method Room Air 09/04/23 07:14 O2 Flow Rate 97 09/02/23 12:21 BMI result Body Mass Index 35.2 Const: General: cooperative HEENT: Head: Yes normal to inspection Face and sinus: Yes normal facial exam Mouth: Normal oral and palatal mucosa present Teeth and gingiva: d entition normal Eyes: General: appearance normal, both eyes and all related structures P upils: Equal, round and reactive pupils present Resp: Effort & Inspection: normal respiratory effort Cardio: Rate: regular rate Rhythm: regular rhythm GI: Palpation (GI): Soft to palpation and nontender : General: Yes no CVA tenderness Back/Spine/Pelvis: Back: no CVA tenderness Skin: Other: reddened skin under left breast area reddened groin area inflammation also Neuro: General: moves all extremities Cranial nerves: Yes Equal, round and reactive pupils present Extrem: General: Yes normal to inspection Psych: Appearance: grossly normal Results Labs 09/03/23 06:22 09/04/23 09:09 Labs: BMP 09/03/23 09/04/23 14:42 09:09 Sodium 133 L 135 Potassium 4.5 3.8 Chloride 104 107 Carbon Dioxide 18 L 18 L BUN 16 12 Creatinine 0.97 0.77 Calcium 9.1 9.2 Microbiology Microbiology Results: Microbiology 09/02/23 09:57 Blood - Venous Blood Culture - Preliminary No growth after 48 hours. 09/02/23 09:41 Blood - Venous Blood Culture - Preliminary No growth after 48 hours. 09/02/23 Unknown Urine clean catch - Urine choudhary top Urine Culture - Final Assessment and Plan (1) Intertrigo: Status: Acute She has intertrigo ,fungal involvement under breasts and in groin area as well. She has no signs of cellulitis. She has no toxicity and no leukocytosis and no signs of herpes zoster and no fever. Plan Po Diflucan 200 mg for five days. No caspofungin at this time but if not resolving would consider,less likely resistance. Also no antibiotics See Wound Care if pain continues in area and treat zoster if find vesicles (none seen).
[2023-09-04] MEDS: Fluconazole in NaCl,Iso-Osm 200 MG/100 ML PIGGYBACK 100 MG IV (14:46)
[2023-09-04] MEDS: Enoxaparin Sodium 40 MG/0.4 ML SYRINGE SUBCUT (14:46)
[2023-09-04 15:33] VITALS: BP 140/62; PULSE 82; RESP 18; TEMP 36.9; O2SAT 94
[2023-09-04 15:52] LABS: Glucose, Whole Blood 200 mg/dL (60-115)
[2023-09-04] MEDS: glyBURIDE 5 MG TABLET PO (17:08)
[2023-09-04 19:58] VITALS: BP 129/66; PULSE 115; RESP 20; TEMP 36.5; O2SAT 95
[2023-09-04 20:09] LABS: Glucose, Whole Blood 209 mg/dL (60-115)
[2023-09-04] MEDS: Insulin Glargine,Hum.rec.anlog 100 UNIT/ML 10 ML VIAL 25 UNIT SUBCUT (20:28)
[2023-09-05] VITALS (7 sets, daily range): BP systolic 111–143; BP diastolic 55–72; PULSE 71–81; RESP 16–19; TEMP 36.5–37.1; O2SAT 96–98
[2023-09-05] MEDS: HYDROmorphone HCl 0.5 MG/0.5 ML SYRINGE 0.25 MG IVPUSH ×3 (04:02→16:29)
[2023-09-05] MEDS: Acetaminophen 325 MG TABLET 650 MG PO ×2 (04:07→18:37)
[2023-09-05 07:57] LABS: Glucose, Whole Blood 106 mg/dL (60-115)
[2023-09-05] MEDS: Miconazole 2 % Extra Thick Cr 56.7 Gm Tube 1 APPL TOPICAL (08:56)
[2023-09-05] MEDS: oxyCODONE HCl Immed Release 5 MG TABLET PO ×2 (08:58→18:37)
[2023-09-05] MEDS: Sodium Bicarbonate 650 MG TABLET PO ×3 (08:58→20:50)
[2023-09-05] MEDS: Cholecalciferol (Vitamin D3) 25 MCG TABLET PO (08:59)
[2023-09-05] MEDS: glyBURIDE 5 MG TABLET PO (08:59)
[2023-09-05] MEDS: 0.9 % Sodium Chloride Flush 3 ML SYRINGE IVFLUSH ×3 (08:59→20:51)
[2023-09-05] MEDS: Metoprolol Tartrate 25 MG TABLET PO ×2 (08:59→20:50)
[2023-09-05 11:07] LABS: Glucose, Whole Blood 229 mg/dL (60-115)
[2023-09-05] MEDS: Fluconazole in NaCl,Iso-Osm 200 MG/100 ML PIGGYBACK 100 MG IV (12:21)
[2023-09-05] MEDS: Insulin Lispro 100 UNIT/ML 3 ML VIAL SUBCUT ×2 (12:21→20:51)
--- NOTE | 2023-09-05 12:25 | HO.WOUND ---
Wound Consult: Follow up 68yr old female admitted to [facility] [place] on?09/02/23 14:21 See progress notes and H&P for detailed history. Recent admission in July 2023 with similar fungal dermatitis noted - see chart review for details. Wound consult placed for Fungal Dermatitis to bilateral breast and groin and intergluteal area. Todays assessment is post shower and the tissue appears improved overall. Patient appears more relaxed and overall reports she feels better. See chart review for treatment details - Per ID Little concern for resistant Nancy Auris - Dr. Montejo recommended discontinue antibiotics, and increase IV Antifungal to daily and continue topical treatment. See photo review - improvement noted over last 24 hrs. At bedside patient reports increased burning with Miconazole application - the nonactive ingredients in the Miconazole Extra thick barrier cream may be irritating to her open tissue. There are fragrances and other potentially irritating additives. Spoke with Pharmacy - Miconazole 2% ointment available - Dr. Mckee to discontinue Extra thick barrier cream and order Miconazole ointment for treatment twice daily. Pt educated on rational behind switching in an effort to minimize burning and irritation. Patient reeducated on the things she can do to aid in resolving this fungal rash. Shower Daily - keep skin dry and clean. Apply topical treatments twice daily or as ordered continue for 10-14 days past rash clearing. Tight control of blood sugars - Pt educated that high sugars increase the chance and worsening of fungal dermatitis. Left Breast 09/04/23 Left Breast 09/05/23 Groin and Perineal 09/04/23 Groin 09/05/23 Intergluteal 09/04/23 Intergluteal 09/05/23 Topical Wound Care Recommendations 1. Maintain blood glucose levels per Providers orders. - Patient was educated poor diabetic control can lead to frequent fungal invasions and she will benefit from better control of her diabetes. 2. Bilateral Breast and Groin - Encourage patient to shower at least daily if not twice a day. Gently cleanse with Ph balanced soap and water, allow to dry - keep skin fold open to air to allow for tissue to completely dry. Then apply Antifungal cream - Miconazole 2% twice daily. ?Apply for 10-14 days past point of clinical clearing. Once fungal dermatitis has cleared consider use of Interdry Sheets to aid in translocating moisture. 3. Intergluteal - Recommend daily showers - Gently cleanse with Ph wipe, allow to dry - keep skin fold open to air to allow for tissue to completely dry. Then apply Antifungal cream - Miconazole 2% twice daily. Re-consult wound care Nurse for wound deterioration or wound changes.
[2023-09-05] MEDS: Docusate Sodium 100 MG CAPSULE PO ×2 (15:31→20:50)
[2023-09-05] MEDS: Enoxaparin Sodium 40 MG/0.4 ML SYRINGE SUBCUT (15:31)
[2023-09-05 16:02] LABS: Glucose, Whole Blood 124 mg/dL (60-115)
[2023-09-05 20:23] LABS: Glucose, Whole Blood 172 mg/dL (60-115)
[2023-09-05] MEDS: HYDROmorphone HCl 0.5 MG/0.5 ML SYRINGE IVPUSH (20:50)
[2023-09-05] MEDS: Insulin Glargine,Hum.rec.anlog 100 UNIT/ML 10 ML VIAL 10 UNIT SUBCUT (20:51)
[2023-09-05] MEDS: Miconazole Nitrate 2% Oint 57 GM OINT...G. 1 APPL TOPICAL (20:52)
[2023-09-06] MEDS: HYDROmorphone HCl 0.5 MG/0.5 ML SYRINGE 0.25 MG IVPUSH (03:10)
[2023-09-06 03:54] VITALS: BP 119/58; PULSE 66; RESP 17; TEMP 36.7; O2SAT 98
[2023-09-06 07:25] VITALS: BP 120/59; PULSE 72; RESP 16; TEMP 36.2; O2SAT 98
[2023-09-06 07:55] LABS: Glucose, Whole Blood 146 mg/dL (60-115)
[2023-09-06] MEDS: Metoprolol Tartrate 25 MG TABLET PO (08:34)
[2023-09-06] MEDS: Sodium Bicarbonate 650 MG TABLET PO (08:34)
[2023-09-06] MEDS: Docusate Sodium 100 MG CAPSULE PO (08:34)
[2023-09-06] MEDS: 0.9 % Sodium Chloride Flush 3 ML SYRINGE IVFLUSH (08:35)
[2023-09-06] MEDS: Cholecalciferol (Vitamin D3) 25 MCG TABLET PO (08:35)
--- NOTE | 2023-09-06 09:41 | P.DS_ITS ---
DS: Providers Provider Date of Service: 09/06/23 Date of admission: 09/02/23 14:21 Primary care physician: ARSH Delacruz Consults: 09/02/23 14:39 Consult to Wound Care Routine Reason for consultation: intertriginous wounds/candidiasis 09/02/23 18:03 Consult to Nephrology Routine Consulting Provider: [facility] Reason for consultation: RTA, metabolic acidosis 09/03/23 08:56 Consult to Wound Care Routine Reason for consultation: candid dermatitis 09/03/23 14:26 Consult to Wound Care Routine Reason for consultation: Labia/ Vulva/ Gluteal cleft/ Under bilateral breasts (left > right)/ pannus Has provider been notified: Yes 09/04/23 08:36 Consult to Infectious Diseases Routine Consulting Provider: [facility] Reason for consultation: severe and extensive ilene of skin Has provider been notified: No DS: Diagnosis Discharge Diagnosis (1) Intertrigo: Status: Acute DS: Summary Hospital Course Hospital Course: admission hpi Chief Complaint: skin infection 68 year old female with history of Uncontrolled type 2 diabetes, hypertension, hyperlipidemia, history of pulmonary embolism completed course of apixaban, ischemic cardiomyopathy/hx NSTEMI with stents placed 07/10 on DAPT, HFpEF, hx uterine carcinosarcoma, who is obese with BMI >34 presented to the ED earlier today for evaluation of fungal infection of the breasts, groin, buttock. She was recent admitted to [facility] from 08/07- 08/10 for intertriginous candidiasis with superimposed cellulitis discharged on doxycycline, miconazole, and oral diflucan. She states she took meds as prescribed and pcp extended course of doxycycline x1 week which was compelted 1 week ago. She states initially felt better, but 5 days ago rash again began to worsen and feels it is now worse than previously. Her has been assisting with application of topical antifungal. Admittedly, her diabetes is not well controlled. Hgb A1c during last admission was 10.7. Not always compliant with diabetic diet. She reports severe pain under the left breast with green purulent drainage, particularly when moving and has noted new rash in the buttock/vuvlovaginal area. She is also reporting several episodes of vomiting and nausea. No abd pain, diarrhea, or fevers. She reports some constipation. On arrival, VSS. No leukocytosis. Renal function and lytes normal, except for CO2 13. ABG pending. UA/UC pending. Blood cultures pending. In the ED, given IV zosyn, 1 L IVNS, dilaudid, 150mg diflucan. Hospital course: Patient was admitted to due extensive Acute on chronic intertriginuous candidiasis with suspected superimposed cellulitis left breast, bilateral groin folds, gluteal cleft, and vuvlovaginal, she has been admitted with similar presentation around august 07, at that time was treated with fo cellulitis with Doxy, oral Diflucan 150 weekly and topical antifungal. She states that had improvement but 5 days before returning the reash came bacme and looked worse, especially in the area under the left breast. She was again started on IV Doxy, topical antifungal and was evaluated by wound care and infectious disease. Infectious disease has recommended stoping Doxycylcine as could be making it worse, systemic Diflucan started IV and will be transitioned to PO at discharged. Overall the rash is much better, she less pain in the area and she will continue Diflucan for total of 10 days, and to continue topical Miconazol cream twie daily. She's to keep the areas as dry as possible. Also Jardiance has been stopped as it is known to cause yeast infection especially around the genital areas. Visiting nurses will assess the patient upon discharge as well. Time Attestation Discharge coordination time: Greater than 30 minutes Quality: Safe Use of Opioids Does Pt have an Active Cancer Diagnosis on the Problem List?: No Quality: Stroke Does the patient have a stroke diagnosis?: No Physical Exam Vital Signs: Vital Signs: Last Vital Signs Temp 97.2 F 09/06/23 07:25 Pulse 72 09/06/23 07:25 Resp 16 09/06/23 07:25 BP 120/59 L 09/06/23 07:25 Pulse Ox 98 09/06/23 07:25 O2 Del Method Room Air 09/06/23 07:25 O2 Flow Rate 97 09/02/23 12:21 BMI result Body Mass Index 35.2 DS: Data Data Completed and Pending Labs on day of discharge: Laboratory Results - last 24 hr 09/05/23 09/05/23 09/05/23 11:00 15:58 20:18 POC Glucose 229 H 124 H 172 H 09/06/23 07:29 POC Glucose 146 H Preliminary micro results at discharge 09/02/23 09:57 Blood Culture - Preliminary Blood - Venous No growth after 48 hours. 09/02/23 09:41 Blood Culture - Preliminary Blood - Venous No growth after 48 hours. Discharge Plan Discharge Anticipated Discharge Date/Time: 09/06/23 09:42 Patient Disposition: Home Health Service Discharge Diagnosis: Acute on chronic intertriginuous candidiasis with suspected superimposed cellulitis Left breast -left breast, bilateral groin folds, gluteal cleft, and vuvlovaginal- Referrals: Prakash METCALF [Outside] - 1 Week Edward Gotti PA [Primary Care Provider] - 1 Week Discharge Medications: Continued cholecalciferol (vitamin D3) 25 mcg (1,000 unit) tablet 25 mcg PO DAILY atorvastatin 80 mg tablet 80 mg PO DAILY Rx Instructions: hold for 3 days after taking fluconazole. (night of and 2 days after) glyburide 5 mg tablet 10 mg PO BID alendronate 70 mg tablet 70 mg PO TOM aspirin 81 mg tablet,delayed release (DR/EC) 81 mg PO DAILY oxycodone-acetaminophen 5-325 mg tablet 1 tab PO Q8H PRN (Reason: pain) lisinopril 5 mg tablet 5 mg PO DAILY metformin 500 mg tablet extended release 24 hr 500 mg PO BID metoprolol tartrate 25 mg tablet 25 mg PO BID insulin glargine [Basaglar KwikPen U-100 Insulin] 100 unit/mL (3 mL) insulin pen 28 - 32 unit subcut QPM Brilinta 60 mg tablet 60 mg PO BID insulin aspart U-100 [Novolog FlexPen U-100 Insulin] 100 unit/mL (3 mL) insulin pen 13 unit subcut TIDWM miconazole nitrate [Inzo Antifungal] 2 % Cream 1 appl topical BID Qty: 2 0RF Protocol: Apply to: Apply to: under skin folds bid Rx Instructions: apply to inflamed folds areas Discontinued Jardiance 10 mg tablet 10 mg PO DAILY doxycycline hyclate 100 mg tablet 100 mg PO BID 7 Days Qty: 14 0RF fluconazole 150 mg tablet 150 mg PO Q7D Qty: 4 0RF Discharge Orders: Discharge Order (Routine); Ordered 09/06/23 Ordered By: [facility] Diet: Diabetic diet Activity on Discharge: As tolerated Stand Alone Forms: Patient Portal Discharge page Care Plan Goals: Resolution of fungal skin infection Health Concerns: fungal skin infection affection under breasts and groin areas Plan of Treatment: Take Diflucan as recommended Use topical miconazol twice daily Keep areas dry as possible, folllow up with your Doctor in a week Follow up with Dr. Morris infectious disease doctor Assessment: see above Patient Instructions: Fluconazole (By mouth)
[2023-09-06] MEDS: Miconazole Nitrate 2% Oint 57 GM OINT...G. 1 APPL TOPICAL (10:29)
[2023-09-06] MEDS: Acetaminophen 325 MG TABLET 650 MG PO (10:35)
[2023-09-06] MEDS: oxyCODONE HCl Immed Release 5 MG TABLET PO (10:35)
[2023-09-06 11:05] LABS: Glucose, Whole Blood 266 mg/dL (60-115)
[2023-09-06] MEDS: Insulin Lispro 100 UNIT/ML 3 ML VIAL SUBCUT (11:14)
[2023-09-06 11:15] VITALS: BP 120/59; PULSE 72; O2SAT 98
[2023-09-06] MEDS: Fluconazole 100 MG TABLET 200 MG PO (12:17)
[2023-09-06 12:51] LABS: Anion Gap 11 (12-20); Blood Urea Nitrogen 10 mg/dL (9-16); Carbon Dioxide 20 mmol/L (22-29); Chloride 110 mmol/L (96-108); Creatinine Clr Calc Pharmacy 80.4; Estimated Glomerular Filt Rate > 60; Glucose Random 222 mg/dL (60-115); Potassium 3.2 mmol/L (3.3-5.1); Sodium 138 mmol/L (135-145)
[2023-09-06] MEDS: Potassium Chloride ER 10 MEQ TABLET.ER 30 MEQ PO (13:08)
--- NOTE | 2023-09-06 14:45 | MHC.CM.PN ---
second IMM 09/06/23, pt has been medically cleared for DC, she will go home via family transport, [facility] will provide home care services.
[2023-09-06 15:08] VITALS: BP 125/62; PULSE 78; RESP 16; TEMP 36; O2SAT 98
== END 2023-09-06 15:38 | disposition home health service (06) | DRG 607 ==
LOC: HO.ED 10:16 → HO.EDOVER 14:27 → HO.IMC 17:58 → HO.S3 09-03 12:17
PROVIDERS: Admitting Provider Physician Assistant; Emergency Provider Emergency Medicine; PCP Physician Assistant Medical; Visit Provider Internal Medicine
DX: L30.4 Erythema intertrigo (principal); I50.32 Chronic diastolic (congestive) heart failure; E87.21 Acute metabolic acidosis; E87.22 Chronic metabolic acidosis; N17.9 Acute kidney failure, unspecified; I25.10 Atherosclerotic heart disease of native coronary artery without angina pectoris; E11.65 Type 2 diabetes mellitus with hyperglycemia; E66.09 Other obesity due to excess calories; Z71.3 Dietary counseling and surveillance; B37.2 Candidiasis of skin and nail; I11.0 Hypertensive heart disease with heart failure; N61.0 Mastitis without abscess; B35.6 Tinea cruris; E78.5 Hyperlipidemia, unspecified; T38.3X5A Adverse effect of insulin and oral hypoglycemic [antidiabetic] drugs, initial encounter; Z68.35 Body mass index [BMI] 35.0-35.9, adult; Z20.822 Contact with and (suspected) exposure to COVID-19; Z91.119 Patient's noncompliance with dietary regimen due to unspecified reason; Z86.711 Personal history of pulmonary embolism; Z79.4 Long term (current) use of insulin; Z79.82 Long term (current) use of aspirin; Z79.84 Long term (current) use of oral hypoglycemic drugs; Z79.899 Other long term (current) drug therapy
CPT/HCPCS: 0241U; 36415; 80048; 80076; 81001; 82010; 82803; 82947; 83605; 83690; 84484; 85025; 87040; 87086; 93005; 97116; 97162; 99285; J1170; J1450; J1650; J2270; J2405; J2543; J7120

== ENCOUNTER 2023-09-02 14:21 | Outpatient (BNV) | payer MEDICARE, OTHER, SELFPAY | END 2023-09-02 14:58 | PROVIDERS: Admitting Provider Physician Assistant; Emergency Provider Emergency Medicine; Visit Provider Internal Medicine | DX: R94.31 Abnormal electrocardiogram [ECG] [EKG] (principal) | CPT/HCPCS: 93010 ==

== ENCOUNTER → 2023-09-02 14:21 | Outpatient (BNV) | payer MEDICARE, OTHER, SELFPAY | PROVIDERS: Admitting Provider Physician Assistant; Emergency Provider Emergency Medicine; PCP Physician Assistant Medical; Visit Provider Internal Medicine | DX: L30.4 Erythema intertrigo (principal) | CPT/HCPCS: 99222 ==

== ENCOUNTER → 2023-09-02 14:21 | Outpatient (BNV) | payer MEDICARE, OTHER, SELFPAY | PROVIDERS: Admitting Provider Physician Assistant; Emergency Provider Emergency Medicine; PCP Physician Assistant Medical; Visit Provider Internal Medicine Nephrology | DX: E87.21 Acute metabolic acidosis (principal); E11.622 Type 2 diabetes mellitus with other skin ulcer; L03.313 Cellulitis of chest wall | CPT/HCPCS: 99223; 99499 ==

== ENCOUNTER → 2023-09-02 14:21 | Outpatient (BNV) | payer MEDICARE, OTHER, SELFPAY | PROVIDERS: Admitting Provider Physician Assistant; Emergency Provider Emergency Medicine; PCP Physician Assistant Medical; Visit Provider Physician Assistant | DX: L30.4 Erythema intertrigo (principal) | CPT/HCPCS: 99223; 99232; 99239 ==

== ENCOUNTER 2023-10-02 08:05 | Outpatient (RCR) | payer MEDICARE, OTHER, SELFPAY | END 2023-11-25 12:07 | disposition home or self-care (01) | LOC: HO.WCC 08:05 | PROVIDERS: PCP Physician Assistant Medical; Visit Provider Surgery | DX: Z09 Encounter for follow-up examination after completed treatment for conditions other than malignant neoplasm (principal); L30.3 Infective dermatitis | CPT/HCPCS: 11106; 88305; 88312; 99212; 99213 ==